=== PATIENT | female | born 1965 | race Caucasian/White ===

== ENCOUNTER 2020-10-23 09:54 | Inpatient (IN) | payer MEDICAID ==
[~2020-10-23] VITALS: Ht 170.2 cm; Wt 87.0 kg
[2020-10-23 10:17] LABS: HEMATOCRIT 38.4 % (36-46); HEMOGLOBIN 12.9 g/dL (12.0-16.0); MEAN CORPUSCULAR HEMOGLOBIN 29.5 pg (26.0-34.0); MEAN CORPUSCULAR HGB CONC 33.7 G/dL (31.0-37.0); MEAN CORPUSCULAR VOLUME 88 fL (80-100); PLATELET COUNT (AUTO) 239 K/uL (150-450); RED BLOOD CELL COUNT(AUTO) 4.39 MIL/uL (4.00-5.20); RED CELL DISTRIBUTION WIDTH 12.7 % (11.5-14.5)
[2020-10-23 10:31] LABS: INR 1.1 (0.9-1.1); PROTHROMBIN TIME 11.4 SEC (9.4-11.6)
[2020-10-23 11:00] LABS: BAND NEUTROPHILS % (MANUAL) 20 % (0-5); LYMPHOCYTES % (MANUAL) 7 % (22-44); METAMYELOCYTES % 1 % (0-0); MONOCYTES % (MANUAL) 7 % (2-9); SEGMENTED NEUTROPHILS % 65 % (40-70)
[2020-10-23 11:04] LABS: ALBUMIN 2.6 g/dL (3.4-5.0); BILIRUBIN,TOTAL 2.8 mg/dL (0.1-1.0); CALCIUM, TOTAL 8.8 mg/dL (8.8-10.5); CREATININE 1.15 mg/dL (0.60-1.30); POTASSIUM 3.2 mmol/L (3.5-5.1)
[2020-10-23 11:09] LABS: APPEARANCE,URINE CLOUDY (CLEAR); GLUCOSE, URINE (UA) NEGATIVE (NEGATIVE); KETONES,URINE TRACE mg/dL (NEGATIVE); LEUKOCYTE ESTERASE ,URINE NEGATIVE (NEGATIVE); NITRATE,URINE POSITIVE (NEGATIVE); PROTEIN,URINE SEE CONFIRM (NEGATIVE)
[2020-10-23] MEDS ORDERED: ASPIRIN 300 MG RECTAL SUPPOSITORY PR ONE (11:15)
[2020-10-23 11:17] LABS: AMPHET/METH SCREEN,URINE NEGATIVE (NEGATIVE); BARBITURATE SCREEN, URINE NEGATIVE (NEGATIVE); BENZODIAZEPINES SCREEN,URINE NEGATIVE (NEGATIVE); CANNABINOID SCREEN,URINE NEGATIVE (NEGATIVE); COCAINE SCREEN,URINE NEGATIVE (NEGATIVE); METHADONE SCREEN, URINE NEGATIVE (NEGATIVE); OPIATE SCREEN,URINE NEGATIVE (NEGATIVE)
[2020-10-23 11:20] LABS: PHENCYCLIDINE SCREEN,URINE NEGATIVE (NEGATIVE)
[2020-10-23 11:21] LABS: BILIRUBIN,URINE PRELIM. POSITIVE (NEGATIVE); OCCULT BLOOD,URINE SMALL (NEGATIVE)
[2020-10-23 11:22] LABS: BACTERIA,URINE Many /HPF (None Seen); SQUAMOUS EPITHELIAL CELL,UR Moderate /LPF (None Seen); SULFOSALICYLIC ACID,URINE 2+ (Negative); WBC,URINE 0-2 /HPF (0-5)
[2020-10-23 11:24] LABS: COVID AG,FIA SOURCE NASOPHARYNGEAL
[2020-10-23] MEDS ORDERED: VANCOMYCIN HCL 1.5 GM in DEXTROSE 5%-WATER 250 ML IV ONE (11:30)
[2020-10-23] MEDS ORDERED: AZITHROMYCIN 500 MG/NS 250 ML IV ONE (11:30)
[2020-10-23 11:33] LABS: ACETAMINOPHEN < 2 mcg/mL (10-30)
[2020-10-23 11:39] LABS: LACTIC ACID 4.4 mmol/L (0.4-2.0)
[2020-10-23 11:41] LABS: SALICYLATE < 0.2 mg/dL (2.8-20.0)
[2020-10-23] MEDS ORDERED: SODIUM CHLORIDE 0.9% 2,800 ML IV ONE (11:45)
[2020-10-23] MEDS: PIPERACILLIN/TAZO 3.375 GM/D5W 50 ML IV SCH ×2 (11:56→18:16)
[2020-10-23] MEDS ORDERED: 0.9% SODIUM CHLORIDE 10 ML SYRINGE IVP PRN (13:00)
[2020-10-23] MEDS ORDERED: ACETAMINOPHEN 325 MG TABLET PO PRN ×2 (13:00→15:45)
[2020-10-23] MEDS ORDERED: ONDANSETRON HCL 4 MG/2 ML VIAL IVP PRN ×2 (13:00→15:45)
[2020-10-23] MEDS ORDERED: SODIUM CHLORIDE 0.9% 1,000 ML IV ONE (15:00)
[2020-10-23] MEDS ORDERED: PHENYLEPHRINE 200 MG/D5%-WATER 250 ML IV PRN ×2 (15:15)
[2020-10-23] MEDS ORDERED: BISACODYL 10 MG RECTAL RECTAL SUPPOSITORY PR PRN (15:45)
[2020-10-23] MEDS ORDERED: MORPHINE SULFATE 2 MG/ML SYRINGE IVP PRN (15:45)
[2020-10-23 16:00] VITALS: BP 92/42
[2020-10-23] MEDS ORDERED: RINGERS SOLUTION,LACTATED 1,000 ML IV ONE (18:00)
[2020-10-23] MEDS ORDERED: SODIUM CHLORIDE 0.9% 250 ML IV ONE (18:14)
[2020-10-23] MEDS ORDERED: IOHEXOL 350 MG/ML 100 ML VIAL ONE (19:18)
[2020-10-23] MEDS ORDERED: SODIUM CHLORIDE 0.9% 100 ML ONE (19:18)
[2020-10-23] MEDS ORDERED: VANCOMYCIN HCL 1 GM/D5% WATER 200 ML IV SCH (20:00)
[2020-10-23 20:04] VITALS: BP 99/58
[2020-10-23] MEDS: ACETAMINOPHEN 650 MG RECTAL SUPPOSITORY PR PRN (20:44)
[2020-10-23] MEDS: ALBUMIN HUMAN 25%-25GM/100ML 100 ML IV SCH (20:44)
[2020-10-23] MEDS: DOCUSATE SODIUM 100 MG CAPSULE PO SCH (21:00)
[2020-10-24 00:09] VITALS: BP 107/64
[2020-10-24] MEDS ORDERED: SODIUM CHLORIDE 0.9% 250 ML IV ONE ×2 (00:17→12:03)
[2020-10-24] MEDS: PIPERACILLIN/TAZO 3.375 GM/D5W 50 ML IV SCH ×5 (00:19→23:21)
[2020-10-24 04:05] VITALS: BP 110/64
[2020-10-24] MEDS: ALBUMIN HUMAN 25%-25GM/100ML 100 ML IV SCH ×3 (04:13→20:19)
[2020-10-24] MEDS: ACETAMINOPHEN 650 MG RECTAL SUPPOSITORY PR PRN ×3 (04:13→20:59)
[2020-10-24 04:44] LABS: BASOPHILS % (AUTO) 0.1 % (0.0-2.0); EOSINOPHILS % (AUTO) 0.1 % (1.0-6.0); HEMATOCRIT 32.1 % (36-46); HEMOGLOBIN 10.8 g/dL (12.0-16.0); LYMPHOCYTES # (AUTO) 0.9 K/uL (1.0-4.8); LYMPHOCYTES % (AUTO) 6.6 % (22.0-44.0); MEAN CORPUSCULAR HEMOGLOBIN 29.5 pg (26.0-34.0); MEAN CORPUSCULAR HGB CONC 33.6 G/dL (31.0-37.0); MEAN CORPUSCULAR VOLUME 88 fL (80-100); MONOCYTES # (AUTO) 0.7 K/uL (0.1-1.0); MONOCYTES % (AUTO) 4.8 % (2.0-9.0); NEUTROPHILS # (AUTO) 12.3 K/uL (1.8-7.7); PLATELET COUNT (AUTO) 217 K/uL (150-450); RED BLOOD CELL COUNT(AUTO) 3.65 MIL/uL (4.00-5.20); RED CELL DISTRIBUTION WIDTH 13.1 % (11.5-14.5)
[2020-10-24 04:56] LABS: NEUTROPHILS % (AUTO) 88.4 % (40.0-70.0)
[2020-10-24 07:14] LABS: ANION GAP 13 mmol/L (8-16); CALCIUM, TOTAL 7.7 mg/dL (8.8-10.5); CARBON DIOXIDE 20 mmol/L (22-29); CHLORIDE 102 mmol/L (98-107); CREATININE 0.66 mg/dL (0.60-1.30); GLOMERULAR FILTR. RATE CALC > 60 mL/min (>60); GLUCOSE,RANDOM 101 mg/dL (70-110); SODIUM SERUM 135 mmol/L (136-145); UREA NITROGEN, BLOOD 14 mg/dL (7-18)
[2020-10-24] MEDS ORDERED: SODIUM CHLORIDE 0.9% 100 ML ONE (07:20)
[2020-10-24] MEDS ORDERED: IOHEXOL 350 MG/ML 100 ML VIAL ONE (07:20)
[2020-10-24 08:00] VITALS: BP 97/57
[2020-10-24] MEDS: DOCUSATE SODIUM 100 MG CAPSULE PO SCH ×2 (09:00→20:16)
[2020-10-24] MEDS: PANTOPRAZOLE SODIUM 40 MG DR TABLET PO SCH (09:00)
[2020-10-24] MEDS: ASPIRIN 81 MG CHEWABLE TABLET PO SCH (09:00)
[2020-10-24] MEDS: POTASSIUM CHL 10 MEQ/WATER 50 ML IV PRN ×4 (10:38→14:50)
[2020-10-24 12:00] VITALS: BP 103/65
[2020-10-24 16:00] VITALS: BP 94/55
[2020-10-24 17:35] LABS: MAGNESIUM 1.9 mg/dL (1.80-2.40); PHOSPHORUS 2.3 mg/dL (2.5-4.9); POTASSIUM 3.7 mmol/L (3.5-5.1)
[2020-10-24 20:00] VITALS: BP 97/53
[2020-10-24] MEDS: ATORVASTATIN CALCIUM 10 MG TABLET PO SCH (20:16)
[2020-10-25] VITALS: BP 94/57
[2020-10-25 04:00] VITALS: BP 95/59
[2020-10-25] MEDS: ALBUMIN HUMAN 25%-25GM/100ML 100 ML IV SCH ×3 (04:13→19:46)
[2020-10-25] MEDS ORDERED: SODIUM CHLORIDE 0.9% 250 ML IV ONE ×2 (04:14→20:45)
[2020-10-25] MEDS: PIPERACILLIN/TAZO 3.375 GM/D5W 50 ML IV SCH ×4 (05:04→23:06)
[2020-10-25 05:09] LABS: BASOPHILS % (AUTO) 0.2 % (0.0-2.0); EOSINOPHILS % (AUTO) 0.3 % (1.0-6.0); HEMATOCRIT 30.4 % (36-46); HEMOGLOBIN 10.2 g/dL (12.0-16.0); LYMPHOCYTES # (AUTO) 1.2 K/uL (1.0-4.8); LYMPHOCYTES % (AUTO) 9.1 % (22.0-44.0); MEAN CORPUSCULAR HEMOGLOBIN 29.6 pg (26.0-34.0); MEAN CORPUSCULAR HGB CONC 33.5 G/dL (31.0-37.0); MEAN CORPUSCULAR VOLUME 89 fL (80-100); MONOCYTES # (AUTO) 0.6 K/uL (0.1-1.0); MONOCYTES % (AUTO) 4.5 % (2.0-9.0); NEUTROPHILS # (AUTO) 11.6 K/uL (1.8-7.7); PLATELET COUNT (AUTO) 222 K/uL (150-450); RED BLOOD CELL COUNT(AUTO) 3.44 MIL/uL (4.00-5.20); RED CELL DISTRIBUTION WIDTH 13.3 % (11.5-14.5)
[2020-10-25 05:26] LABS: ANION GAP 7 mmol/L (8-16); CALCIUM, TOTAL 8.5 mg/dL (8.8-10.5); CARBON DIOXIDE 25 mmol/L (22-29); CHLORIDE 104 mmol/L (98-107); CREATININE 0.66 mg/dL (0.60-1.30); GLOMERULAR FILTR. RATE CALC > 60 mL/min (>60); GLUCOSE,RANDOM 87 mg/dL (70-110); POTASSIUM 3.2 mmol/L (3.5-5.1); SODIUM SERUM 136 mmol/L (136-145); UREA NITROGEN, BLOOD 15 mg/dL (7-18)
[2020-10-25] MEDS: POTASSIUM CHL 10 MEQ/WATER 50 ML IV PRN ×3 (05:48→06:52)
[2020-10-25 05:56] LABS: NEUTROPHILS % (AUTO) 85.9 % (40.0-70.0)
[2020-10-25 08:00] VITALS: BP 104/62
[2020-10-25] MEDS: DOCUSATE SODIUM 100 MG CAPSULE PO SCH ×2 (09:00→20:54)
[2020-10-25] MEDS: PANTOPRAZOLE SODIUM 40 MG DR TABLET PO SCH (10:19)
[2020-10-25] MEDS: ASPIRIN 81 MG CHEWABLE TABLET PO SCH (10:20)
[2020-10-25 12:00] VITALS: BP 94/58
[2020-10-25] MEDS ORDERED: VANCOMYCIN HCL 1.5 GM in DEXTROSE 5%-WATER 250 ML IV ONE (13:15)
[2020-10-25 16:00] VITALS: BP 116/64
[2020-10-25] MEDS: ACETAMINOPHEN 325 MG TABLET PO PRN ×2 (17:44→23:12)
[2020-10-25 20:00] VITALS: BP 101/57
[2020-10-25] MEDS: ATORVASTATIN CALCIUM 10 MG TABLET PO SCH (20:54)
[2020-10-25] MEDS: VANCOMYCIN HCL 1 GM/D5% WATER 200 ML IV SCH (23:07)
[2020-10-26] VITALS: BP 105/59
[2020-10-26] MEDS: ALBUMIN HUMAN 25%-25GM/100ML 100 ML IV SCH ×3 (03:02→20:41)
[2020-10-26 04:00] VITALS: BP 98/56
[2020-10-26 05:07] LABS: HIV 1-2 SCREEN 4TH GEN W/RFLX Non Reactive (Non Reactive)
[2020-10-26 05:45] LABS: BASOPHILS % (AUTO) 0.2 % (0.0-2.0); EOSINOPHILS % (AUTO) 1.1 % (1.0-6.0); HEMATOCRIT 31.9 % (36-46); HEMOGLOBIN 10.7 g/dL (12.0-16.0); LYMPHOCYTES # (AUTO) 1.1 K/uL (1.0-4.8); LYMPHOCYTES % (AUTO) 9.2 % (22.0-44.0); MEAN CORPUSCULAR HEMOGLOBIN 29.6 pg (26.0-34.0); MEAN CORPUSCULAR HGB CONC 33.7 G/dL (31.0-37.0); MEAN CORPUSCULAR VOLUME 88 fL (80-100); MONOCYTES # (AUTO) 0.6 K/uL (0.1-1.0); MONOCYTES % (AUTO) 4.5 % (2.0-9.0); NEUTROPHILS # (AUTO) 10.6 K/uL (1.8-7.7); PLATELET COUNT (AUTO) 220 K/uL (150-450); RED BLOOD CELL COUNT(AUTO) 3.63 MIL/uL (4.00-5.20); RED CELL DISTRIBUTION WIDTH 13.2 % (11.5-14.5)
[2020-10-26] MEDS: PIPERACILLIN/TAZO 3.375 GM/D5W 50 ML IV SCH ×3 (06:10→18:20)
[2020-10-26 07:09] LABS: ALANINE AMINOTRANSFERASE 44 U/L (12-78); ALBUMIN 2.9 g/dL (3.4-5.0); ALKALINE PHOSPHATASE 62 U/L (46-116); ANION GAP 12 mmol/L (8-16); ASPARTATE AMINOTRANSFERASE 49 U/L (15-37); BILIRUBIN,TOTAL 1.1 mg/dL (0.1-1.0); CALCIUM, TOTAL 8.2 mg/dL (8.8-10.5); CARBON DIOXIDE 23 mmol/L (22-29); CHLORIDE 100 mmol/L (98-107); CHOL/HDL RATIO 6.8 (3.9-5.7); CHOLESTEROL 75 mg/dL (131-200); CREATININE 0.59 mg/dL (0.60-1.30); GLOMERULAR FILTR. RATE CALC > 60 mL/min (>60); GLUCOSE,RANDOM 103 mg/dL (70-110); HDL CHOLESTEROL 11 mg/dL (40-60); LDL CHOL (CALC.) 42 mg/dL (0-130); PHOSPHORUS 2.2 mg/dL (2.5-4.9); POTASSIUM 3.4 mmol/L (3.5-5.1); SODIUM SERUM 135 mmol/L (136-145); TOTAL PROTEIN, SERUM 5.9 g/dL (6.4-8.2); TRIGLYCERIDES 110 mg/dL (15-150); UREA NITROGEN, BLOOD 14 mg/dL (7-18)
[2020-10-26 08:00] VITALS: BP 111/66
[2020-10-26] MEDS ORDERED: HEPARIN SODIUM,PORCINE 5,000 UNITS/ML VIAL IVP ONE (08:00)
[2020-10-26] MEDS ORDERED: POTASSIUM CHLORIDE 20 MEQ ER TABLET PO PRN ×2 (08:00)
[2020-10-26] MEDS ORDERED: HEPARIN SODIUM,PORCINE 5,000 UNITS/ML VIAL IVP PRN (08:00)
[2020-10-26] MEDS: HEPARIN SODIUM 25000 UNITS/D5W 250 ML IV PRN ×2 (08:13→21:48)
[2020-10-26] MEDS: ASPIRIN 81 MG CHEWABLE TABLET PO SCH (08:14)
[2020-10-26] MEDS: DOCUSATE SODIUM 100 MG CAPSULE PO SCH ×2 (08:14→20:41)
[2020-10-26] MEDS: VANCOMYCIN HCL 1 GM/D5% WATER 200 ML IV SCH ×2 (08:14→16:03)
[2020-10-26] MEDS: ETHYL ALCOHOL 62% ANTISEPTIC NASAL INHALANT 0.6 ML AMPUL NASAL SCH ×2 (08:14→20:41)
[2020-10-26] MEDS: PANTOPRAZOLE SODIUM 40 MG DR TABLET PO SCH (08:15)
[2020-10-26 09:07] LABS: dsDNA(nDNA) Screen-Crithidia Negative (Negative)
[2020-10-26] MEDS ORDERED: MAGNESIUM SULFATE 2 GM/WATER 50 ML IV ONE (10:00)
[2020-10-26] MEDS ORDERED: POTASSIUM PHOS,M-BASIC-D-BASIC 10 MEQ in DEXTROSE 5%-WATER 50 ML IV ONE (10:00)
[2020-10-26] MEDS ORDERED: SODIUM CHLORIDE 0.9% 250 ML IV ONE (10:07)
[2020-10-26] MEDS: ACETAMINOPHEN 325 MG TABLET PO PRN ×3 (11:07→20:55)
[2020-10-26 12:00] VITALS: BP 94/62
[2020-10-26 15:29] LABS: ANION GAP 9 mmol/L (8-16); CALCIUM, TOTAL 8.8 mg/dL (8.8-10.5); CARBON DIOXIDE 27 mmol/L (22-29); CHLORIDE 100 mmol/L (98-107); CREATININE 0.58 mg/dL (0.60-1.30); GLOMERULAR FILTR. RATE CALC > 60 mL/min (>60); GLUCOSE,RANDOM 94 mg/dL (70-110); POTASSIUM 3.8 mmol/L (3.5-5.1); SODIUM SERUM 136 mmol/L (136-145); UREA NITROGEN, BLOOD 10 mg/dL (7-18)
[2020-10-26 16:00] VITALS: BP 100/62
[2020-10-26 20:00] VITALS: BP 104/59
[2020-10-26] MEDS: ATORVASTATIN CALCIUM 10 MG TABLET PO SCH (20:42)
[2020-10-27] VITALS: BP 98/61
[2020-10-27] MEDS: VANCOMYCIN HCL 1 GM/D5% WATER 200 ML IV SCH (00:10)
[2020-10-27] MEDS: PIPERACILLIN/TAZO 3.375 GM/D5W 50 ML IV SCH ×5 (00:10→23:12)
[2020-10-27] MEDS: ACETAMINOPHEN 325 MG TABLET PO PRN ×4 (02:47→23:12)
[2020-10-27 04:00] VITALS: BP_SYST 124; BP_SYST 84; BP_DIAS 53; BP_DIAS 74
[2020-10-27] MEDS: ALBUMIN HUMAN 25%-25GM/100ML 100 ML IV SCH ×3 (04:35→20:00)
[2020-10-27 05:29] LABS: ANION GAP 6 mmol/L (8-16); CALCIUM, TOTAL 8.5 mg/dL (8.8-10.5); CARBON DIOXIDE 27 mmol/L (22-29); CHLORIDE 102 mmol/L (98-107); CREATININE 0.58 mg/dL (0.60-1.30); GLOMERULAR FILTR. RATE CALC > 60 mL/min (>60); GLUCOSE,RANDOM 113 mg/dL (70-110); PHOSPHORUS 3.1 mg/dL (2.5-4.9); POTASSIUM 3.5 mmol/L (3.5-5.1); SODIUM SERUM 135 mmol/L (136-145); UREA NITROGEN, BLOOD 9 mg/dL (7-18)
[2020-10-27] MEDS ORDERED: SODIUM CHLORIDE 0.9% 250 ML IV ONE ×2 (06:31→22:06)
[2020-10-27] MEDS: POTASSIUM CHL 10 MEQ/WATER 50 ML IV PRN ×4 (06:32→10:40)
[2020-10-27] MEDS ORDERED: POTASSIUM CHL 10 MEQ/WATER 50 ML IV PRN ×6 (06:45→07:00)
[2020-10-27 08:00] VITALS: BP 101/66
[2020-10-27] MEDS: PANTOPRAZOLE SODIUM 40 MG DR TABLET PO SCH (08:28)
[2020-10-27] MEDS: ETHYL ALCOHOL 62% ANTISEPTIC NASAL INHALANT 0.6 ML AMPUL NASAL SCH ×2 (08:28→21:00)
[2020-10-27] MEDS: VANCOMYCIN HCL 1.25 GM in DEXTROSE 5%-WATER 250 ML IV SCH ×3 (08:28→23:12)
[2020-10-27] MEDS: ASPIRIN 81 MG CHEWABLE TABLET PO SCH (08:28)
[2020-10-27] MEDS: DOCUSATE SODIUM 100 MG CAPSULE PO SCH ×2 (08:29→21:00)
[2020-10-27] MEDS: HEPARIN SODIUM 25000 UNITS/D5W 250 ML IV PRN (10:07)
[2020-10-27 12:00] VITALS: BP 115/73
[2020-10-27] MEDS ORDERED: 0.9% SODIUM CHLORIDE 15 ML NEB SOLUTION NEB ONE ×2 (14:01→14:02)
[2020-10-27 16:00] VITALS: BP 104/64
[2020-10-27 20:01] VITALS: BP 106/60
[2020-10-27] MEDS: ATORVASTATIN CALCIUM 10 MG TABLET PO SCH (21:00)
[2020-10-28] VITALS (7 sets, daily range): BP systolic 99–110; BP diastolic 53–66
[2020-10-28] MEDS: HEPARIN SODIUM 25000 UNITS/D5W 250 ML IV PRN ×2 (00:07→13:09)
[2020-10-28] MEDS: ALBUMIN HUMAN 25%-25GM/100ML 100 ML IV SCH ×3 (05:05→20:06)
[2020-10-28] MEDS: PIPERACILLIN/TAZO 3.375 GM/D5W 50 ML IV SCH ×4 (05:05→23:45)
[2020-10-28 05:08] LABS: DRVVT CORRECTED MIX-LUPUS 42.2 sec (0.0-40.4)
[2020-10-28 05:12] LABS: ANION GAP 6 mmol/L (8-16); CALCIUM, TOTAL 8.8 mg/dL (8.8-10.5); CARBON DIOXIDE 26 mmol/L (22-29); CHLORIDE 103 mmol/L (98-107); CREATININE 0.61 mg/dL (0.60-1.30); GLOMERULAR FILTR. RATE CALC > 60 mL/min (>60); GLUCOSE,RANDOM 106 mg/dL (70-110); POTASSIUM 3.9 mmol/L (3.5-5.1); SODIUM SERUM 135 mmol/L (136-145); UREA NITROGEN, BLOOD 9 mg/dL (7-18)
[2020-10-28] MEDS: PANTOPRAZOLE SODIUM 40 MG DR TABLET PO SCH (08:34)
[2020-10-28] MEDS: ASPIRIN 81 MG CHEWABLE TABLET PO SCH (08:34)
[2020-10-28] MEDS: VANCOMYCIN HCL 1.25 GM in DEXTROSE 5%-WATER 250 ML IV SCH ×2 (08:34→16:00)
[2020-10-28] MEDS: DOCUSATE SODIUM 100 MG CAPSULE PO SCH ×2 (08:35→20:13)
[2020-10-28] MEDS: ETHYL ALCOHOL 62% ANTISEPTIC NASAL INHALANT 0.6 ML AMPUL NASAL SCH ×2 (08:43→20:06)
[2020-10-28] MEDS: ACETAMINOPHEN 325 MG TABLET PO PRN ×2 (11:49→17:33)
[2020-10-28] MEDS: HYDROCODONE/ACETAMINOPHEN 5-325 MG TABLET PO PRN (20:05)
[2020-10-28] MEDS: ATORVASTATIN CALCIUM 10 MG TABLET PO SCH (20:05)
[2020-10-28] MEDS: ZOLPIDEM TARTRATE 5 MG TABLET PO PRN (20:05)
[2020-10-28] MEDS ORDERED: SODIUM CHLORIDE 0.9% 100 ML ONE (20:15)
[2020-10-29 00:12] VITALS: BP 114/67
[2020-10-29] MEDS: VANCOMYCIN HCL 1.25 GM in DEXTROSE 5%-WATER 250 ML IV SCH ×3 (00:34→16:52)
[2020-10-29] MEDS: ALBUMIN HUMAN 25%-25GM/100ML 100 ML IV SCH ×3 (03:47→21:21)
[2020-10-29 04:20] VITALS: BP 111/62
[2020-10-29] MEDS: PIPERACILLIN/TAZO 3.375 GM/D5W 50 ML IV SCH ×3 (05:11→18:56)
[2020-10-29] MEDS ORDERED: SODIUM CHLORIDE 0.9% 250 ML IV ONE (05:13)
[2020-10-29 06:16] LABS: BASOPHILS % (AUTO) 0.2 % (0.0-2.0); EOSINOPHILS % (AUTO) 0.5 % (1.0-6.0); HEMATOCRIT 29.1 % (36-46); HEMOGLOBIN 9.7 g/dL (12.0-16.0); LYMPHOCYTES # (AUTO) 2.1 K/uL (1.0-4.8); LYMPHOCYTES % (AUTO) 10.6 % (22.0-44.0); MEAN CORPUSCULAR HEMOGLOBIN 29.5 pg (26.0-34.0); MEAN CORPUSCULAR HGB CONC 33.3 G/dL (31.0-37.0); MEAN CORPUSCULAR VOLUME 89 fL (80-100); MONOCYTES # (AUTO) 0.7 K/uL (0.1-1.0); MONOCYTES % (AUTO) 3.5 % (2.0-9.0); NEUTROPHILS # (AUTO) 16.8 K/uL (1.8-7.7); PLATELET COUNT (AUTO) 372 K/uL (150-450); RED BLOOD CELL COUNT(AUTO) 3.28 MIL/uL (4.00-5.20); RED CELL DISTRIBUTION WIDTH 13.2 % (11.5-14.5)
[2020-10-29 07:00] LABS: NEUTROPHILS % (AUTO) 85.2 % (40.0-70.0)
[2020-10-29 07:24] LABS: ALANINE AMINOTRANSFERASE 26 U/L (12-78); ALBUMIN 3.6 g/dL (3.4-5.0); ALKALINE PHOSPHATASE 49 U/L (46-116); ANION GAP 11 mmol/L (8-16); ASPARTATE AMINOTRANSFERASE 20 U/L (15-37); BILIRUBIN,TOTAL 0.9 mg/dL (0.1-1.0); CALCIUM, TOTAL 8.8 mg/dL (8.8-10.5); CARBON DIOXIDE 24 mmol/L (22-29); CHLORIDE 101 mmol/L (98-107); CREATININE 0.61 mg/dL (0.60-1.30); GLOMERULAR FILTR. RATE CALC > 60 mL/min (>60); GLUCOSE,RANDOM 93 mg/dL (70-110); POTASSIUM 3.6 mmol/L (3.5-5.1); SODIUM SERUM 136 mmol/L (136-145); TOTAL PROTEIN, SERUM 6.7 g/dL (6.4-8.2); UREA NITROGEN, BLOOD 8 mg/dL (7-18); VANCOMYCIN,RANDOM 24.3 mcg/mL (25.0-50.0)
[2020-10-29 07:59] VITALS: BP 112/62
[2020-10-29] MEDS: ASPIRIN 81 MG CHEWABLE TABLET PO SCH (08:01)
[2020-10-29] MEDS: ETHYL ALCOHOL 62% ANTISEPTIC NASAL INHALANT 0.6 ML AMPUL NASAL SCH ×2 (08:01→21:21)
[2020-10-29] MEDS: DOCUSATE SODIUM 100 MG CAPSULE PO SCH ×2 (08:01→21:00)
[2020-10-29] MEDS: PANTOPRAZOLE SODIUM 40 MG DR TABLET PO SCH (08:01)
[2020-10-29 12:20] VITALS: BP 120/68
[2020-10-29 15:09] VITALS: BP 107/62
[2020-10-29 19:55] VITALS: BP 104/59
[2020-10-29] MEDS: ATORVASTATIN CALCIUM 10 MG TABLET PO SCH (21:21)
[2020-10-29] MEDS: ZOLPIDEM TARTRATE 5 MG TABLET PO PRN (21:22)
[2020-10-29] MEDS: HYDROCODONE/ACETAMINOPHEN 5-325 MG TABLET PO PRN (21:22)
[2020-10-30] VITALS (7 sets, daily range): BP systolic 101–122; BP diastolic 54–73
[2020-10-30] MEDS: VANCOMYCIN HCL 1.25 GM in DEXTROSE 5%-WATER 250 ML IV SCH ×3 (00:09→17:31)
[2020-10-30] MEDS: PIPERACILLIN/TAZO 3.375 GM/D5W 50 ML IV SCH ×4 (00:09→18:17)
[2020-10-30] MEDS: HYDROCODONE/ACETAMINOPHEN 5-325 MG TABLET PO PRN ×2 (01:54→20:37)
[2020-10-30] MEDS ORDERED: SODIUM CHLORIDE 0.9% 250 ML IV ONE ×2 (03:33→17:45)
[2020-10-30] MEDS: ALBUMIN HUMAN 25%-25GM/100ML 100 ML IV SCH ×3 (05:14→20:38)
[2020-10-30 06:59] LABS: HEMATOCRIT 30.2 % (36-46); MEAN CORPUSCULAR HEMOGLOBIN 29.2 pg (26.0-34.0); MEAN CORPUSCULAR HGB CONC 33.2 G/dL (31.0-37.0); MEAN CORPUSCULAR VOLUME 88 fL (80-100); PLATELET COUNT (AUTO) 447 K/uL (150-450); RED BLOOD CELL COUNT(AUTO) 3.44 MIL/uL (4.00-5.20); RED CELL DISTRIBUTION WIDTH 13.2 % (11.5-14.5)
[2020-10-30 07:13] LABS: ALANINE AMINOTRANSFERASE 25 U/L (12-78); ALBUMIN 3.8 g/dL (3.4-5.0); ALKALINE PHOSPHATASE 53 U/L (46-116); ANION GAP 16 mmol/L (8-16); ASPARTATE AMINOTRANSFERASE 23 U/L (15-37); CARBON DIOXIDE 26 mmol/L (22-29); CHLORIDE 100 mmol/L (98-107); GLOMERULAR FILTR. RATE CALC > 60 mL/min (>60); GLUCOSE,RANDOM 101 mg/dL (70-110); POTASSIUM 3.6 mmol/L (3.5-5.1); SODIUM SERUM 142 mmol/L (136-145); TOTAL PROTEIN, SERUM 7.1 g/dL (6.4-8.2); UREA NITROGEN, BLOOD 9 mg/dL (7-18)
[2020-10-30 07:59] LABS: BAND NEUTROPHILS % (MANUAL) 10 % (0-5); LYMPHOCYTES % (MANUAL) 9 % (22-44); MONOCYTES % (MANUAL) 3 % (2-9); SEGMENTED NEUTROPHILS % 78 % (40-70)
[2020-10-30] MEDS: PANTOPRAZOLE SODIUM 40 MG DR TABLET PO SCH (08:28)
[2020-10-30] MEDS: ASPIRIN 81 MG CHEWABLE TABLET PO SCH (08:28)
[2020-10-30] MEDS: DOCUSATE SODIUM 100 MG CAPSULE PO SCH ×2 (08:28→20:37)
[2020-10-30] MEDS: ETHYL ALCOHOL 62% ANTISEPTIC NASAL INHALANT 0.6 ML AMPUL NASAL SCH ×2 (08:28→20:57)
[2020-10-30] MEDS ORDERED: SODIUM CHLORIDE 0.9% 2,000 ML ONE (16:19)
[2020-10-30] MEDS: ATORVASTATIN CALCIUM 10 MG TABLET PO SCH (20:37)
[2020-10-30] MEDS: ZOLPIDEM TARTRATE 5 MG TABLET PO PRN (20:37)
[2020-10-31] MEDS: VANCOMYCIN HCL 1.25 GM in DEXTROSE 5%-WATER 250 ML IV SCH (00:47)
[2020-10-31] MEDS: PIPERACILLIN/TAZO 3.375 GM/D5W 50 ML IV SCH ×2 (00:47→06:11)
[2020-10-31] MEDS: HYDROCODONE/ACETAMINOPHEN 5-325 MG TABLET PO PRN (00:54)
[2020-10-31 04:23] VITALS: BP 107/85
[2020-10-31] MEDS: ALBUMIN HUMAN 25%-25GM/100ML 100 ML IV SCH ×3 (04:26→20:48)
[2020-10-31] MEDS ORDERED: SODIUM CHLORIDE 0.9% 250 ML IV ONE ×2 (06:07→17:19)
[2020-10-31 06:30] LABS: HEMATOCRIT 31.1 % (36-46); HEMOGLOBIN 10.2 g/dL (12.0-16.0); MEAN CORPUSCULAR HEMOGLOBIN 29.1 pg (26.0-34.0); MEAN CORPUSCULAR HGB CONC 32.8 G/dL (31.0-37.0); MEAN CORPUSCULAR VOLUME 89 fL (80-100); PLATELET COUNT (AUTO) 539 K/uL (150-450); RED CELL DISTRIBUTION WIDTH 13.7 % (11.5-14.5)
[2020-10-31 07:12] LABS: ALANINE AMINOTRANSFERASE 26 U/L (12-78); ALBUMIN 4.1 g/dL (3.4-5.0); ALKALINE PHOSPHATASE 49 U/L (46-116); ANION GAP 12 mmol/L (8-16); ASPARTATE AMINOTRANSFERASE 21 U/L (15-37); BILIRUBIN,TOTAL 1.1 mg/dL (0.1-1.0); CALCIUM, TOTAL 9.1 mg/dL (8.8-10.5); CARBON DIOXIDE 23 mmol/L (22-29); CHLORIDE 101 mmol/L (98-107); CREATININE 0.69 mg/dL (0.60-1.30); GLOMERULAR FILTR. RATE CALC > 60 mL/min (>60); GLUCOSE,RANDOM 96 mg/dL (70-110); POTASSIUM 3.8 mmol/L (3.5-5.1); SODIUM SERUM 136 mmol/L (136-145); TOTAL PROTEIN, SERUM 7.3 g/dL (6.4-8.2); UREA NITROGEN, BLOOD 15 mg/dL (7-18)
[2020-10-31 07:17] VITALS: BP 112/63
[2020-10-31 07:31] LABS: BAND NEUTROPHILS % (MANUAL) 7 % (0-5); LYMPHOCYTES % (MANUAL) 17 % (22-44); MONOCYTES % (MANUAL) 4 % (2-9); SEGMENTED NEUTROPHILS % 72 % (40-70)
[2020-10-31] MEDS: PANTOPRAZOLE SODIUM 40 MG DR TABLET PO SCH (09:01)
[2020-10-31] MEDS: ETHYL ALCOHOL 62% ANTISEPTIC NASAL INHALANT 0.6 ML AMPUL NASAL SCH ×2 (09:01→20:48)
[2020-10-31] MEDS: ASPIRIN 81 MG CHEWABLE TABLET PO SCH (09:01)
[2020-10-31] MEDS: VANCOMYCIN HCL 1 GM/D5% WATER 200 ML IV SCH ×2 (09:01→17:16)
[2020-10-31] MEDS: DOCUSATE SODIUM 100 MG CAPSULE PO SCH ×2 (09:01→20:48)
[2020-10-31] MEDS: HEPARIN SODIUM 25000 UNITS/D5W 250 ML IV PRN ×2 (09:03→22:32)
[2020-10-31 11:23] VITALS: BP 105/65
[2020-10-31 14:44] VITALS: BP 101/58
[2020-10-31] MEDS ORDERED: SODIUM CHLORIDE 0.9% 100 ML ONE (18:13)
[2020-10-31] MEDS ORDERED: IOHEXOL 350 MG/ML 100 ML VIAL ONE (18:13)
[2020-10-31 20:15] VITALS: BP 114/66
[2020-10-31] MEDS: ATORVASTATIN CALCIUM 10 MG TABLET PO SCH (20:48)
[2020-11-01 00:10] VITALS: BP 112/61
[2020-11-01] MEDS: VANCOMYCIN HCL 1 GM/D5% WATER 200 ML IV SCH ×2 (00:16→08:46)
[2020-11-01] MEDS: ALBUMIN HUMAN 25%-25GM/100ML 100 ML IV SCH (04:08)
[2020-11-01 04:35] VITALS: BP 119/60
[2020-11-01] MEDS: ACETAMINOPHEN 325 MG TABLET PO PRN (04:44)
[2020-11-01 05:22] LABS: HEMATOCRIT 29.6 % (36-46); MEAN CORPUSCULAR HEMOGLOBIN 29.7 pg (26.0-34.0); MEAN CORPUSCULAR HGB CONC 33.7 G/dL (31.0-37.0); MEAN CORPUSCULAR VOLUME 88 fL (80-100); PLATELET COUNT (AUTO) 594 K/uL (150-450); RED BLOOD CELL COUNT(AUTO) 3.35 MIL/uL (4.00-5.20); RED CELL DISTRIBUTION WIDTH 13.3 % (11.5-14.5)
[2020-11-01 06:09] LABS: ALANINE AMINOTRANSFERASE 25 U/L (12-78); ALBUMIN 4.3 g/dL (3.4-5.0); ALKALINE PHOSPHATASE 44 U/L (46-116); ANION GAP 8 mmol/L (8-16); ASPARTATE AMINOTRANSFERASE 25 U/L (15-37); CALCIUM, TOTAL 9.4 mg/dL (8.8-10.5); CARBON DIOXIDE 26 mmol/L (22-29); CHLORIDE 102 mmol/L (98-107); CREATININE 0.59 mg/dL (0.60-1.30); GLOMERULAR FILTR. RATE CALC > 60 mL/min (>60); GLUCOSE,RANDOM 97 mg/dL (70-110); POTASSIUM 3.9 mmol/L (3.5-5.1); SODIUM SERUM 136 mmol/L (136-145); TOTAL PROTEIN, SERUM 7.6 g/dL (6.4-8.2); UREA NITROGEN, BLOOD 12 mg/dL (7-18); VANCOMYCIN,RANDOM 27.6 mcg/mL (25.0-50.0)
[2020-11-01 07:11] VITALS: BP 103/70
[2020-11-01 07:18] LABS: BAND NEUTROPHILS % (MANUAL) 7 % (0-5); EOSINOPHILS % (MANUAL) 1 % (1-6); LYMPHOCYTES % (MANUAL) 14 % (22-44); MONOCYTES % (MANUAL) 6 % (2-9); SEGMENTED NEUTROPHILS % 72 % (40-70)
[2020-11-01] MEDS: PANTOPRAZOLE SODIUM 40 MG DR TABLET PO SCH (08:46)
[2020-11-01] MEDS: DOCUSATE SODIUM 100 MG CAPSULE PO SCH ×2 (08:46→20:02)
[2020-11-01] MEDS: ASPIRIN 81 MG CHEWABLE TABLET PO SCH (08:46)
[2020-11-01] MEDS: ETHYL ALCOHOL 62% ANTISEPTIC NASAL INHALANT 0.6 ML AMPUL NASAL SCH ×2 (08:48→20:02)
[2020-11-01 11:24] VITALS: BP 112/63
[2020-11-01] MEDS: HEPARIN SODIUM 25000 UNITS/D5W 250 ML IV PRN (14:16)
[2020-11-01 15:17] VITALS: BP 120/63
[2020-11-01] MEDS: HEPARIN SODIUM,PORCINE 5,000 UNITS/ML VIAL IVP PRN (16:57)
[2020-11-01 19:30] VITALS: BP 128/62
[2020-11-01] MEDS: ATORVASTATIN CALCIUM 10 MG TABLET PO SCH (20:02)
[2020-11-02] VITALS (7 sets, daily range): BP systolic 112–134; BP diastolic 60–66
[2020-11-02 05:24] LABS: BASOPHILS % (AUTO) 0.3 % (0.0-2.0); EOSINOPHILS % (AUTO) 0.4 % (1.0-6.0); HEMATOCRIT 31.7 % (36-46); HEMOGLOBIN 10.4 g/dL (12.0-16.0); LYMPHOCYTES # (AUTO) 2.2 K/uL (1.0-4.8); LYMPHOCYTES % (AUTO) 10.8 % (22.0-44.0); MEAN CORPUSCULAR HEMOGLOBIN 29.2 pg (26.0-34.0); MEAN CORPUSCULAR HGB CONC 32.7 G/dL (31.0-37.0); MEAN CORPUSCULAR VOLUME 89 fL (80-100); MONOCYTES # (AUTO) 0.9 K/uL (0.1-1.0); MONOCYTES % (AUTO) 4.3 % (2.0-9.0); NEUTROPHILS # (AUTO) 16.9 K/uL (1.8-7.7); NEUTROPHILS % (AUTO) 84.2 % (40.0-70.0); PLATELET COUNT (AUTO) 686 K/uL (150-450); RED BLOOD CELL COUNT(AUTO) 3.56 MIL/uL (4.00-5.20); RED CELL DISTRIBUTION WIDTH 13.5 % (11.5-14.5)
[2020-11-02 05:41] LABS: ALANINE AMINOTRANSFERASE 24 U/L (12-78); ALKALINE PHOSPHATASE 51 U/L (46-116); ANION GAP 8 mmol/L (8-16); ASPARTATE AMINOTRANSFERASE 24 U/L (15-37); BILIRUBIN,TOTAL 0.9 mg/dL (0.1-1.0); CALCIUM, TOTAL 9.4 mg/dL (8.8-10.5); CARBON DIOXIDE 26 mmol/L (22-29); CHLORIDE 101 mmol/L (98-107); GLOMERULAR FILTR. RATE CALC > 60 mL/min (>60); GLUCOSE,RANDOM 95 mg/dL (70-110); POTASSIUM 3.9 mmol/L (3.5-5.1); SODIUM SERUM 135 mmol/L (136-145); TOTAL PROTEIN, SERUM 7.4 g/dL (6.4-8.2); UREA NITROGEN, BLOOD 16 mg/dL (7-18)
[2020-11-02] MEDS ORDERED: MIDAZOLAM HCL 2 MG/2 ML VIAL ONE ×2 (07:48→08:23)
[2020-11-02] MEDS ORDERED: NALOXONE HCL 0.4 MG/ML VIAL ONE (07:48)
[2020-11-02] MEDS ORDERED: FentaNYL CITRATE PF 100 MCG/2 ML VIAL ONE ×2 (07:48→08:22)
[2020-11-02] MEDS ORDERED: FLUMAZENIL 0.1 MG/ML 5 ML VIAL IVP ONE (07:48)
[2020-11-02] MEDS ORDERED: LIDOCAINE/PF 1% 30 ML VIAL ONE (09:23)
[2020-11-02] MEDS ORDERED: MIDAZOLAM HCL 2 MG/2 ML VIAL IM ONE (10:30)
[2020-11-02] MEDS ORDERED: FentaNYL CITRATE PF 100 MCG/2 ML VIAL IVP ONE (10:30)
[2020-11-02] MEDS: ACETAMINOPHEN 325 MG TABLET PO PRN (11:48)
[2020-11-02] MEDS: PANTOPRAZOLE SODIUM 40 MG DR TABLET PO SCH (11:48)
[2020-11-02] MEDS: ASPIRIN 81 MG CHEWABLE TABLET PO SCH (11:48)
[2020-11-02] MEDS: VANCOMYCIN HCL 1.25 GM in DEXTROSE 5%-WATER 250 ML IV SCH ×2 (11:48→20:07)
[2020-11-02] MEDS: DOCUSATE SODIUM 100 MG CAPSULE PO SCH ×2 (11:48→20:06)
[2020-11-02] MEDS: HEPARIN SODIUM 25000 UNITS/D5W 250 ML IV PRN (16:46)
[2020-11-02] MEDS: ATORVASTATIN CALCIUM 10 MG TABLET PO SCH (20:06)
[2020-11-03 03:30] VITALS: BP 113/62
[2020-11-03] MEDS: HEPARIN SODIUM 25000 UNITS/D5W 250 ML IV PRN ×2 (03:52→20:32)
[2020-11-03 07:24] VITALS: BP 115/68
[2020-11-03 07:24] LABS: BASOPHILS % (AUTO) 1.1 % (0.0-2.0); EOSINOPHILS % (AUTO) 1.1 % (1.0-6.0); HEMOGLOBIN 10.4 g/dL (12.0-16.0); LYMPHOCYTES # (AUTO) 2.4 K/uL (1.0-4.8); LYMPHOCYTES % (AUTO) 13.6 % (22.0-44.0); MEAN CORPUSCULAR HEMOGLOBIN 28.9 pg (26.0-34.0); MEAN CORPUSCULAR HGB CONC 32.4 G/dL (31.0-37.0); MEAN CORPUSCULAR VOLUME 89 fL (80-100); MONOCYTES # (AUTO) 0.7 K/uL (0.1-1.0); MONOCYTES % (AUTO) 4.2 % (2.0-9.0); NEUTROPHILS # (AUTO) 14.1 K/uL (1.8-7.7); PLATELET COUNT (AUTO) 723 K/uL (150-450); RED CELL DISTRIBUTION WIDTH 13.4 % (11.5-14.5)
[2020-11-03 07:39] LABS: ALANINE AMINOTRANSFERASE 23 U/L (12-78); ALBUMIN 3.9 g/dL (3.4-5.0); ALKALINE PHOSPHATASE 55 U/L (46-116); ANION GAP 5 mmol/L (8-16); ASPARTATE AMINOTRANSFERASE 27 U/L (15-37); CALCIUM, TOTAL 9.4 mg/dL (8.8-10.5); CARBON DIOXIDE 25 mmol/L (22-29); CHLORIDE 101 mmol/L (98-107); GLOMERULAR FILTR. RATE CALC > 60 mL/min (>60); GLUCOSE,RANDOM 94 mg/dL (70-110); POTASSIUM 3.9 mmol/L (3.5-5.1); SODIUM SERUM 131 mmol/L (136-145); TOTAL PROTEIN, SERUM 7.8 g/dL (6.4-8.2); UREA NITROGEN, BLOOD 15 mg/dL (7-18)
[2020-11-03] MEDS: DOCUSATE SODIUM 100 MG CAPSULE PO SCH ×2 (08:15→21:58)
[2020-11-03] MEDS: ASPIRIN 81 MG CHEWABLE TABLET PO SCH (08:15)
[2020-11-03] MEDS: PANTOPRAZOLE SODIUM 40 MG DR TABLET PO SCH (08:15)
[2020-11-03] MEDS: VANCOMYCIN HCL 1.25 GM in DEXTROSE 5%-WATER 250 ML IV SCH ×2 (08:17→21:58)
[2020-11-03 11:19] VITALS: BP 112/77
[2020-11-03 15:17] VITALS: BP 116/65
[2020-11-03 20:12] VITALS: BP 101/56
[2020-11-03] MEDS: HEPARIN SODIUM,PORCINE 5,000 UNITS/ML VIAL IVP PRN (21:57)
[2020-11-03] MEDS: ETHYL ALCOHOL 62% ANTISEPTIC NASAL INHALANT 0.6 ML AMPUL NASAL SCH (21:58)
[2020-11-03] MEDS: ATORVASTATIN CALCIUM 10 MG TABLET PO SCH (21:58)
[2020-11-03 23:39] VITALS: BP 124/63
[2020-11-04 04:15] VITALS: BP 112/66
[2020-11-04 06:31] LABS: EOSINOPHILS % (AUTO) 0.9 % (1.0-6.0); HEMATOCRIT 30.7 % (36-46); HEMOGLOBIN 10.1 g/dL (12.0-16.0); LYMPHOCYTES # (AUTO) 2.9 K/uL (1.0-4.8); MEAN CORPUSCULAR HEMOGLOBIN 29.5 pg (26.0-34.0); MEAN CORPUSCULAR VOLUME 89 fL (80-100); MONOCYTES # (AUTO) 0.8 K/uL (0.1-1.0); MONOCYTES % (AUTO) 5.2 % (2.0-9.0); NEUTROPHILS % (AUTO) 74.9 % (40.0-70.0); RED BLOOD CELL COUNT(AUTO) 3.44 MIL/uL (4.00-5.20); RED CELL DISTRIBUTION WIDTH 13.7 % (11.5-14.5)
[2020-11-04 06:49] LABS: PLATELET COUNT (AUTO) 753 K/uL (150-450)
[2020-11-04 07:01] LABS: ALANINE AMINOTRANSFERASE 23 U/L (12-78); ALBUMIN 3.8 g/dL (3.4-5.0); ALKALINE PHOSPHATASE 55 U/L (46-116); ANION GAP 10 mmol/L (8-16); ASPARTATE AMINOTRANSFERASE 26 U/L (15-37); C-REACTIVE PROTEIN QUANT 3.23 mg/dL (0.00-0.30); CALCIUM, TOTAL 9.6 mg/dL (8.8-10.5); CARBON DIOXIDE 26 mmol/L (22-29); CHLORIDE 100 mmol/L (98-107); CREATININE 0.59 mg/dL (0.60-1.30); GLOMERULAR FILTR. RATE CALC > 60 mL/min (>60); GLUCOSE,RANDOM 94 mg/dL (70-110); SODIUM SERUM 136 mmol/L (136-145); TOTAL PROTEIN, SERUM 7.8 g/dL (6.4-8.2); UREA NITROGEN, BLOOD 15 mg/dL (7-18); VANCOMYCIN,RANDOM 20.2 mcg/mL (25.0-50.0)
[2020-11-04 08:04] VITALS: BP 101/76
[2020-11-04] MEDS: ETHYL ALCOHOL 62% ANTISEPTIC NASAL INHALANT 0.6 ML AMPUL NASAL SCH ×2 (08:11→20:58)
[2020-11-04] MEDS: DOCUSATE SODIUM 100 MG CAPSULE PO SCH ×2 (08:11→20:58)
[2020-11-04] MEDS: ASPIRIN 81 MG CHEWABLE TABLET PO SCH (08:11)
[2020-11-04] MEDS: ACETAMINOPHEN 325 MG TABLET PO PRN ×2 (08:11→20:59)
[2020-11-04] MEDS: PANTOPRAZOLE SODIUM 40 MG DR TABLET PO SCH (08:11)
[2020-11-04] MEDS: HEPARIN SODIUM 25000 UNITS/D5W 250 ML IV PRN ×2 (08:16→21:29)
[2020-11-04] MEDS: VANCOMYCIN HCL 1.25 GM in DEXTROSE 5%-WATER 250 ML IV SCH ×2 (08:18→20:58)
[2020-11-04 12:17] VITALS: BP 115/76
[2020-11-04 15:08] VITALS: BP 100/69
[2020-11-04 19:33] VITALS: BP 104/61
[2020-11-04] MEDS: ATORVASTATIN CALCIUM 10 MG TABLET PO SCH (20:59)
[2020-11-04 23:29] VITALS: BP 108/55
[2020-11-05 05:45] VITALS: BP 104/59
[2020-11-05 07:28] VITALS: BP 109/61
[2020-11-05 07:28] LABS: ANION GAP 14 mmol/L (8-16); CALCIUM, TOTAL 9.8 mg/dL (8.8-10.5); CARBON DIOXIDE 25 mmol/L (22-29); CHLORIDE 101 mmol/L (98-107); CREATININE 0.59 mg/dL (0.60-1.30); GLOMERULAR FILTR. RATE CALC > 60 mL/min (>60); GLUCOSE,RANDOM 85 mg/dL (70-110); POTASSIUM 4.2 mmol/L (3.5-5.1); SODIUM SERUM 140 mmol/L (136-145); UREA NITROGEN, BLOOD 18 mg/dL (7-18)
[2020-11-05] MEDS: ETHYL ALCOHOL 62% ANTISEPTIC NASAL INHALANT 0.6 ML AMPUL NASAL SCH ×2 (08:10→20:34)
[2020-11-05] MEDS: ASPIRIN 81 MG CHEWABLE TABLET PO SCH (08:11)
[2020-11-05] MEDS: VANCOMYCIN HCL 1.25 GM in DEXTROSE 5%-WATER 250 ML IV SCH ×2 (08:11→20:35)
[2020-11-05] MEDS: PANTOPRAZOLE SODIUM 40 MG DR TABLET PO SCH (08:11)
[2020-11-05] MEDS: DOCUSATE SODIUM 100 MG CAPSULE PO SCH ×2 (08:11→20:34)
[2020-11-05] MEDS: HEPARIN SODIUM 25000 UNITS/D5W 250 ML IV PRN ×2 (09:04→21:09)
[2020-11-05 11:30] VITALS: BP 98/74
[2020-11-05 15:47] VITALS: BP 104/64
[2020-11-05 19:46] VITALS: BP 111/61
[2020-11-05] MEDS: ACETAMINOPHEN 325 MG TABLET PO PRN (20:34)
[2020-11-05] MEDS: ATORVASTATIN CALCIUM 10 MG TABLET PO SCH (20:34)
[2020-11-05 23:46] VITALS: BP 100/57
[2020-11-06 04:18] VITALS: BP 106/63
[2020-11-06 07:18] LABS: BASOPHILS % (AUTO) 1.4 % (0.0-2.0); EOSINOPHILS % (AUTO) 1.8 % (1.0-6.0); HEMATOCRIT 32.9 % (36-46); HEMOGLOBIN 11.1 g/dL (12.0-16.0); LYMPHOCYTES # (AUTO) 2.3 K/uL (1.0-4.8); LYMPHOCYTES % (AUTO) 21.9 % (22.0-44.0); MEAN CORPUSCULAR HEMOGLOBIN 29.9 pg (26.0-34.0); MEAN CORPUSCULAR HGB CONC 33.8 G/dL (31.0-37.0); MEAN CORPUSCULAR VOLUME 88 fL (80-100); MONOCYTES # (AUTO) 0.7 K/uL (0.1-1.0); MONOCYTES % (AUTO) 6.7 % (2.0-9.0); NEUTROPHILS # (AUTO) 7.3 K/uL (1.8-7.7); NEUTROPHILS % (AUTO) 68.2 % (40.0-70.0); RED BLOOD CELL COUNT(AUTO) 3.72 MIL/uL (4.00-5.20); RED CELL DISTRIBUTION WIDTH 13.2 % (11.5-14.5)
[2020-11-06 07:19] LABS: ANION GAP 13 mmol/L (8-16); CALCIUM, TOTAL 9.8 mg/dL (8.8-10.5); CARBON DIOXIDE 25 mmol/L (22-29); CHLORIDE 101 mmol/L (98-107); CREATININE 0.48 mg/dL (0.60-1.30); GLOMERULAR FILTR. RATE CALC > 60 mL/min (>60); GLUCOSE,RANDOM 88 mg/dL (70-110); POTASSIUM 4.1 mmol/L (3.5-5.1); SODIUM SERUM 139 mmol/L (136-145); UREA NITROGEN, BLOOD 14 mg/dL (7-18)
[2020-11-06 07:44] VITALS: BP 114/63
[2020-11-06 08:29] LABS: PLATELET COUNT (AUTO) 789 K/uL (150-450)
[2020-11-06] MEDS: VANCOMYCIN HCL 1.25 GM in DEXTROSE 5%-WATER 250 ML IV SCH ×2 (08:39→22:28)
[2020-11-06] MEDS: PANTOPRAZOLE SODIUM 40 MG DR TABLET PO SCH (08:40)
[2020-11-06] MEDS: ASPIRIN 81 MG CHEWABLE TABLET PO SCH (08:40)
[2020-11-06] MEDS: ETHYL ALCOHOL 62% ANTISEPTIC NASAL INHALANT 0.6 ML AMPUL NASAL SCH ×2 (08:42→22:28)
[2020-11-06] MEDS: DOCUSATE SODIUM 100 MG CAPSULE PO SCH ×2 (09:22→22:28)
[2020-11-06] MEDS: HEPARIN SODIUM 25000 UNITS/D5W 250 ML IV PRN ×2 (09:35→23:50)
[2020-11-06 11:11] VITALS: BP 114/67
[2020-11-06 15:14] VITALS: BP 112/63
[2020-11-06 20:03] VITALS: BP 104/66
[2020-11-06] MEDS: ATORVASTATIN CALCIUM 10 MG TABLET PO SCH (22:28)
[2020-11-07 00:03] VITALS: BP 103/55
[2020-11-07 04:09] VITALS: BP 130/74
[2020-11-07] MEDS: ACETAMINOPHEN 325 MG TABLET PO PRN ×2 (06:01→20:10)
[2020-11-07 07:00] LABS: ANION GAP 14 mmol/L (8-16); CALCIUM, TOTAL 9.8 mg/dL (8.8-10.5); CARBON DIOXIDE 25 mmol/L (22-29); CHLORIDE 99 mmol/L (98-107); CREATININE 0.67 mg/dL (0.60-1.30); GLOMERULAR FILTR. RATE CALC > 60 mL/min (>60); GLUCOSE,RANDOM 92 mg/dL (70-110); POTASSIUM 4.1 mmol/L (3.5-5.1); SODIUM SERUM 138 mmol/L (136-145); UREA NITROGEN, BLOOD 18 mg/dL (7-18); VANCOMYCIN,RANDOM 21.8 mcg/mL (25.0-50.0)
[2020-11-07 07:18] VITALS: BP 106/72
[2020-11-07] MEDS: VANCOMYCIN HCL 1.25 GM in DEXTROSE 5%-WATER 250 ML IV SCH ×2 (08:24→20:01)
[2020-11-07] MEDS: PANTOPRAZOLE SODIUM 40 MG DR TABLET PO SCH (08:25)
[2020-11-07] MEDS: ASPIRIN 81 MG CHEWABLE TABLET PO SCH (08:25)
[2020-11-07] MEDS: ETHYL ALCOHOL 62% ANTISEPTIC NASAL INHALANT 0.6 ML AMPUL NASAL SCH ×2 (08:25→20:01)
[2020-11-07] MEDS: ATORVASTATIN CALCIUM 10 MG TABLET PO SCH (08:25)
[2020-11-07] MEDS: DOCUSATE SODIUM 100 MG CAPSULE PO SCH ×2 (08:25→20:01)
[2020-11-07 11:41] VITALS: BP 108/69
[2020-11-07] MEDS ORDERED: IOHEXOL 350 MG/ML 100 ML VIAL ONE (13:30)
[2020-11-07] MEDS ORDERED: SODIUM CHLORIDE 0.9% 100 ML ONE (13:30)
[2020-11-07] MEDS: HEPARIN SODIUM 25000 UNITS/D5W 250 ML IV PRN (14:49)
[2020-11-07 15:30] VITALS: BP 102/67
[2020-11-07 20:03] VITALS: BP 126/53
[2020-11-08 00:08] VITALS: BP 115/50
[2020-11-08] MEDS: HYDROCODONE/ACETAMINOPHEN 5-325 MG TABLET PO PRN (00:21)
[2020-11-08] MEDS ORDERED: SODIUM CHLORIDE 0.9% 100 ML ONE (00:55)
[2020-11-08] MEDS ORDERED: IOHEXOL 350 MG/ML 150 ML VIAL ONE (00:55)
[2020-11-08] MEDS: MAGNESIUM HYDROXIDE SUSPENSION 30 ML UDCUP PO PRN (02:27)
[2020-11-08 05:26] VITALS: BP 132/68
[2020-11-08] MEDS: HEPARIN SODIUM 25000 UNITS/D5W 250 ML IV PRN ×2 (05:36→19:42)
[2020-11-08 07:53] VITALS: BP 122/70
[2020-11-08] MEDS: VANCOMYCIN HCL 1.25 GM in DEXTROSE 5%-WATER 250 ML IV SCH ×2 (08:28→19:44)
[2020-11-08] MEDS: ETHYL ALCOHOL 62% ANTISEPTIC NASAL INHALANT 0.6 ML AMPUL NASAL SCH ×2 (08:29→19:44)
[2020-11-08] MEDS: DOCUSATE SODIUM 100 MG CAPSULE PO SCH ×2 (08:29→20:02)
[2020-11-08] MEDS: PANTOPRAZOLE SODIUM 40 MG DR TABLET PO SCH (08:29)
[2020-11-08] MEDS: ASPIRIN 81 MG CHEWABLE TABLET PO SCH (08:29)
[2020-11-08] MEDS ORDERED: SODIUM CHLORIDE 0.9% 250 ML IV ONE (08:37)
[2020-11-08] MEDS: HEPARIN SODIUM,PORCINE 5,000 UNITS/ML VIAL IVP PRN (08:45)
[2020-11-08 11:28] VITALS: BP 117/72
[2020-11-08 15:17] VITALS: BP 116/71
[2020-11-08 20:09] VITALS: BP 112/76
[2020-11-08] MEDS: ATORVASTATIN CALCIUM 10 MG TABLET PO SCH (20:12)
[2020-11-09 00:15] VITALS: BP 118/76
[2020-11-09 04:32] VITALS: BP 131/70
[2020-11-09] MEDS: HYDROCODONE/ACETAMINOPHEN 5-325 MG TABLET PO PRN (05:06)
[2020-11-09] MEDS ORDERED: LIDOCAINE/PF 1% 30 ML VIAL ONE (08:42)
[2020-11-09] MEDS ORDERED: FentaNYL CITRATE PF 100 MCG/2 ML VIAL IVP ONE ×2 (09:00→09:15)
[2020-11-09] MEDS ORDERED: MIDAZOLAM HCL 2 MG/2 ML VIAL IVP ONE (09:15)
[2020-11-09] MEDS ORDERED: FentaNYL CITRATE PF 100 MCG/2 ML VIAL IVP PRN (10:30)
[2020-11-09] MEDS: ASPIRIN 81 MG CHEWABLE TABLET PO SCH (11:28)
[2020-11-09] MEDS: DOCUSATE SODIUM 100 MG CAPSULE PO SCH ×2 (11:28→21:15)
[2020-11-09] MEDS: PANTOPRAZOLE SODIUM 40 MG DR TABLET PO SCH (11:28)
[2020-11-09] MEDS: ETHYL ALCOHOL 62% ANTISEPTIC NASAL INHALANT 0.6 ML AMPUL NASAL SCH ×2 (11:28→21:15)
[2020-11-09] MEDS: VANCOMYCIN HCL 1.25 GM in DEXTROSE 5%-WATER 250 ML IV SCH ×2 (11:29→21:17)
[2020-11-09 11:44] VITALS: BP 115/72
[2020-11-09 12:46] LABS: BASOPHILS % (AUTO) 0.6 % (0.0-2.0); EOSINOPHILS % (AUTO) 3.6 % (1.0-6.0); HEMATOCRIT 34.4 % (36-46); HEMOGLOBIN 11.3 g/dL (12.0-16.0); LYMPHOCYTES # (AUTO) 2.1 K/uL (1.0-4.8); LYMPHOCYTES % (AUTO) 30.6 % (22.0-44.0); MEAN CORPUSCULAR HEMOGLOBIN 29.5 pg (26.0-34.0); MEAN CORPUSCULAR VOLUME 90 fL (80-100); MONOCYTES # (AUTO) 0.7 K/uL (0.1-1.0); MONOCYTES % (AUTO) 10.6 % (2.0-9.0); NEUTROPHILS # (AUTO) 3.8 K/uL (1.8-7.7); NEUTROPHILS % (AUTO) 54.6 % (40.0-70.0); PLATELET COUNT (AUTO) 664 K/uL (150-450); RED BLOOD CELL COUNT(AUTO) 3.84 MIL/uL (4.00-5.20); RED CELL DISTRIBUTION WIDTH 14.1 % (11.5-14.5)
[2020-11-09 13:00] LABS: ALANINE AMINOTRANSFERASE 23 U/L (12-78); ALBUMIN 4.2 g/dL (3.4-5.0); ALKALINE PHOSPHATASE 92 U/L (46-116); ANION GAP 16 mmol/L (8-16); ASPARTATE AMINOTRANSFERASE 26 U/L (15-37); BILIRUBIN,TOTAL 0.8 mg/dL (0.1-1.0); C-REACTIVE PROTEIN QUANT 1.31 mg/dL (0.00-0.30); CALCIUM, TOTAL 9.9 mg/dL (8.8-10.5); CARBON DIOXIDE 26 mmol/L (22-29); CHLORIDE 97 mmol/L (98-107); CREATININE 0.66 mg/dL (0.60-1.30); GLOMERULAR FILTR. RATE CALC > 60 mL/min (>60); GLUCOSE,RANDOM 117 mg/dL (70-110); SODIUM SERUM 139 mmol/L (136-145); TOTAL PROTEIN, SERUM 8.7 g/dL (6.4-8.2); UREA NITROGEN, BLOOD 16 mg/dL (7-18)
[2020-11-09 13:05] LABS: INR 1.1 (0.9-1.1); PROTHROMBIN TIME 11.4 SEC (9.4-11.6)
[2020-11-09 16:36] VITALS: BP 107/70
[2020-11-09] MEDS ORDERED: MAGNESIUM HYDROXIDE SUSPENSION 30 ML UDCUP PO ONE (16:45)
[2020-11-09] MEDS: MAGNESIUM HYDROXIDE SUSPENSION 30 ML UDCUP PO PRN (19:40)
[2020-11-09 20:19] VITALS: BP 115/67
[2020-11-09] MEDS: HEPARIN SODIUM 25000 UNITS/D5W 250 ML IV PRN (21:04)
[2020-11-09] MEDS: ATORVASTATIN CALCIUM 10 MG TABLET PO SCH (21:15)
[2020-11-09] MEDS: HEPARIN SODIUM,PORCINE 5,000 UNITS/ML VIAL IVP PRN (22:33)
[2020-11-10 00:13] VITALS: BP 111/67
[2020-11-10 04:06] VITALS: BP 114/66
[2020-11-10] MEDS: HYDROCODONE/ACETAMINOPHEN 5-325 MG TABLET PO PRN (05:42)
[2020-11-10] MEDS: HEPARIN SODIUM 25000 UNITS/D5W 250 ML IV PRN (06:01)
[2020-11-10] MEDS: MAGNESIUM HYDROXIDE SUSPENSION 30 ML UDCUP PO PRN (07:39)
[2020-11-10] MEDS: PANTOPRAZOLE SODIUM 40 MG DR TABLET PO SCH (07:41)
[2020-11-10] MEDS: DOCUSATE SODIUM 100 MG CAPSULE PO SCH ×3 (07:41→21:00)
[2020-11-10] MEDS: ASPIRIN 81 MG CHEWABLE TABLET PO SCH (07:41)
[2020-11-10] MEDS: VANCOMYCIN HCL 1.25 GM in DEXTROSE 5%-WATER 250 ML IV SCH ×2 (07:41→20:21)
[2020-11-10] MEDS: ETHYL ALCOHOL 62% ANTISEPTIC NASAL INHALANT 0.6 ML AMPUL NASAL SCH ×2 (07:43→20:59)
[2020-11-10 08:08] VITALS: BP 109/65
[2020-11-10 08:41] LABS: BASOPHILS % (AUTO) 1.3 % (0.0-2.0); EOSINOPHILS % (AUTO) 3.5 % (1.0-6.0); HEMATOCRIT 34.7 % (36-46); HEMOGLOBIN 11.5 g/dL (12.0-16.0); LYMPHOCYTES # (AUTO) 2.2 K/uL (1.0-4.8); LYMPHOCYTES % (AUTO) 25.7 % (22.0-44.0); MEAN CORPUSCULAR HEMOGLOBIN 29.7 pg (26.0-34.0); MEAN CORPUSCULAR VOLUME 90 fL (80-100); MONOCYTES # (AUTO) 0.6 K/uL (0.1-1.0); MONOCYTES % (AUTO) 7.4 % (2.0-9.0); NEUTROPHILS # (AUTO) 5.4 K/uL (1.8-7.7); NEUTROPHILS % (AUTO) 62.1 % (40.0-70.0); PLATELET COUNT (AUTO) 657 K/uL (150-450); RED BLOOD CELL COUNT(AUTO) 3.86 MIL/uL (4.00-5.20); RED CELL DISTRIBUTION WIDTH 14.3 % (11.5-14.5)
[2020-11-10 08:58] LABS: ALANINE AMINOTRANSFERASE 86 U/L (12-78); ALKALINE PHOSPHATASE 357 U/L (46-116); ANION GAP 11 mmol/L (8-16); ASPARTATE AMINOTRANSFERASE 70 U/L (15-37); BILIRUBIN,TOTAL 0.9 mg/dL (0.1-1.0); CALCIUM, TOTAL 10.1 mg/dL (8.8-10.5); CARBON DIOXIDE 27 mmol/L (22-29); CHLORIDE 97 mmol/L (98-107); CREATININE 0.56 mg/dL (0.60-1.30); GLOMERULAR FILTR. RATE CALC > 60 mL/min (>60); GLUCOSE,RANDOM 88 mg/dL (70-110); POTASSIUM 3.9 mmol/L (3.5-5.1); SODIUM SERUM 135 mmol/L (136-145); TOTAL PROTEIN, SERUM 8.5 g/dL (6.4-8.2); UREA NITROGEN, BLOOD 19 mg/dL (7-18)
[2020-11-10] MEDS ORDERED: SODIUM CHLORIDE 0.9% 250 ML IV ONE (09:54)
[2020-11-10 12:31] VITALS: BP 105/70
[2020-11-10 16:36] VITALS: BP 109/63
[2020-11-10 19:44] VITALS: BP 106/72
[2020-11-10] MEDS: ATORVASTATIN CALCIUM 10 MG TABLET PO SCH (20:59)
[2020-11-10] MEDS ORDERED: DiphenhydrAMINE HCL 25 MG CAPSULE PO PRN (21:30)
[2020-11-11] VITALS (7 sets, daily range): BP systolic 99–109; BP diastolic 56–66
[2020-11-11] MEDS: HEPARIN SODIUM 25000 UNITS/D5W 250 ML IV PRN ×3 (00:38→20:22)
[2020-11-11 05:21] LABS: BASOPHILS % (AUTO) 1.3 % (0.0-2.0); EOSINOPHILS % (AUTO) 6.4 % (1.0-6.0); HEMOGLOBIN 11.5 g/dL (12.0-16.0); LYMPHOCYTES # (AUTO) 2.1 K/uL (1.0-4.8); LYMPHOCYTES % (AUTO) 32.6 % (22.0-44.0); MEAN CORPUSCULAR HEMOGLOBIN 29.9 pg (26.0-34.0); MEAN CORPUSCULAR HGB CONC 33.8 G/dL (31.0-37.0); MEAN CORPUSCULAR VOLUME 88 fL (80-100); MONOCYTES # (AUTO) 0.6 K/uL (0.1-1.0); MONOCYTES % (AUTO) 9.8 % (2.0-9.0); NEUTROPHILS # (AUTO) 3.2 K/uL (1.8-7.7); NEUTROPHILS % (AUTO) 49.9 % (40.0-70.0); PLATELET COUNT (AUTO) 559 K/uL (150-450); RED BLOOD CELL COUNT(AUTO) 3.84 MIL/uL (4.00-5.20); RED CELL DISTRIBUTION WIDTH 14.5 % (11.5-14.5)
[2020-11-11 05:44] LABS: ALANINE AMINOTRANSFERASE 85 U/L (12-78); ALBUMIN 3.9 g/dL (3.4-5.0); ALKALINE PHOSPHATASE 372 U/L (46-116); ANION GAP 8 mmol/L (8-16); ASPARTATE AMINOTRANSFERASE 40 U/L (15-37); BILIRUBIN,TOTAL 0.9 mg/dL (0.1-1.0); CALCIUM, TOTAL 9.5 mg/dL (8.8-10.5); CARBON DIOXIDE 28 mmol/L (22-29); CHLORIDE 98 mmol/L (98-107); CREATININE 0.71 mg/dL (0.60-1.30); GLOMERULAR FILTR. RATE CALC > 60 mL/min (>60); GLUCOSE,RANDOM 102 mg/dL (70-110); POTASSIUM 4.2 mmol/L (3.5-5.1); SODIUM SERUM 134 mmol/L (136-145); TOTAL PROTEIN, SERUM 8.5 g/dL (6.4-8.2); UREA NITROGEN, BLOOD 14 mg/dL (7-18)
[2020-11-11] MEDS: DOCUSATE SODIUM 100 MG CAPSULE PO SCH ×2 (08:24→20:13)
[2020-11-11] MEDS: PANTOPRAZOLE SODIUM 40 MG DR TABLET PO SCH (08:24)
[2020-11-11] MEDS: VANCOMYCIN HCL 1.25 GM in DEXTROSE 5%-WATER 250 ML IV SCH ×2 (08:24→20:13)
[2020-11-11] MEDS: ASPIRIN 81 MG CHEWABLE TABLET PO SCH (08:25)
[2020-11-11] MEDS: ETHYL ALCOHOL 62% ANTISEPTIC NASAL INHALANT 0.6 ML AMPUL NASAL SCH ×2 (08:25→20:14)
[2020-11-11] MEDS ORDERED: SODIUM CHLORIDE 0.9% 500 ML IV ONE (09:39)
[2020-11-11] MEDS: ACETAMINOPHEN 325 MG TABLET PO PRN (09:45)
[2020-11-11] MEDS: HEPARIN SODIUM,PORCINE 5,000 UNITS/ML VIAL IVP PRN (11:50)
[2020-11-11] MEDS: ATORVASTATIN CALCIUM 10 MG TABLET PO SCH (20:13)
[2020-11-12] VITALS (7 sets, daily range): BP systolic 92–110; BP diastolic 58–71
[2020-11-12 07:23] LABS: BASOPHILS % (AUTO) 2.7 % (0.0-2.0); EOSINOPHILS % (AUTO) 6.8 % (1.0-6.0); HEMATOCRIT 34.9 % (36-46); HEMOGLOBIN 11.6 g/dL (12.0-16.0); LYMPHOCYTES # (AUTO) 2.2 K/uL (1.0-4.8); LYMPHOCYTES % (AUTO) 33.9 % (22.0-44.0); MEAN CORPUSCULAR HEMOGLOBIN 29.5 pg (26.0-34.0); MEAN CORPUSCULAR HGB CONC 33.2 G/dL (31.0-37.0); MEAN CORPUSCULAR VOLUME 89 fL (80-100); MONOCYTES # (AUTO) 0.7 K/uL (0.1-1.0); MONOCYTES % (AUTO) 10.7 % (2.0-9.0); NEUTROPHILS # (AUTO) 2.9 K/uL (1.8-7.7); NEUTROPHILS % (AUTO) 45.9 % (40.0-70.0); PLATELET COUNT (AUTO) 541 K/uL (150-450); RED BLOOD CELL COUNT(AUTO) 3.93 MIL/uL (4.00-5.20); RED CELL DISTRIBUTION WIDTH 14.8 % (11.5-14.5)
[2020-11-12 07:38] LABS: ALANINE AMINOTRANSFERASE 53 U/L (12-78); ALBUMIN 3.7 g/dL (3.4-5.0); ALKALINE PHOSPHATASE 277 U/L (46-116); ANION GAP 8 mmol/L (8-16); ASPARTATE AMINOTRANSFERASE 22 U/L (15-37); BILIRUBIN,TOTAL 0.7 mg/dL (0.1-1.0); CALCIUM, TOTAL 9.5 mg/dL (8.8-10.5); CARBON DIOXIDE 26 mmol/L (22-29); CHLORIDE 100 mmol/L (98-107); CREATININE 0.74 mg/dL (0.60-1.30); GLOMERULAR FILTR. RATE CALC > 60 mL/min (>60); GLUCOSE,RANDOM 96 mg/dL (70-110); POTASSIUM 4.1 mmol/L (3.5-5.1); SODIUM SERUM 134 mmol/L (136-145); TOTAL PROTEIN, SERUM 8.4 g/dL (6.4-8.2); UREA NITROGEN, BLOOD 20 mg/dL (7-18)
[2020-11-12] MEDS: HEPARIN SODIUM 25000 UNITS/D5W 250 ML IV PRN ×2 (07:44→18:12)
[2020-11-12] MEDS: DOCUSATE SODIUM 100 MG CAPSULE PO SCH ×2 (08:03→20:28)
[2020-11-12] MEDS: VANCOMYCIN HCL 1.25 GM in DEXTROSE 5%-WATER 250 ML IV SCH ×2 (08:13→20:28)
[2020-11-12] MEDS: ETHYL ALCOHOL 62% ANTISEPTIC NASAL INHALANT 0.6 ML AMPUL NASAL SCH ×2 (08:13→20:28)
[2020-11-12] MEDS: ASPIRIN 81 MG CHEWABLE TABLET PO SCH (08:14)
[2020-11-12] MEDS: PANTOPRAZOLE SODIUM 40 MG DR TABLET PO SCH (08:14)
[2020-11-12] MEDS: ATORVASTATIN CALCIUM 10 MG TABLET PO SCH (20:28)
[2020-11-12] MEDS ORDERED: SODIUM CHLORIDE 0.9% 100 ML ONE (20:34)
[2020-11-13 04:56] VITALS: BP 103/62
[2020-11-13] MEDS: HEPARIN SODIUM 25000 UNITS/D5W 250 ML IV PRN ×2 (05:32→22:20)
[2020-11-13 07:45] LABS: BASOPHILS % (AUTO) 3.2 % (0.0-2.0); EOSINOPHILS % (AUTO) 7.9 % (1.0-6.0); HEMOGLOBIN 11.3 g/dL (12.0-16.0); LYMPHOCYTES # (AUTO) 2.3 K/uL (1.0-4.8); LYMPHOCYTES % (AUTO) 34.8 % (22.0-44.0); MEAN CORPUSCULAR HEMOGLOBIN 29.7 pg (26.0-34.0); MEAN CORPUSCULAR HGB CONC 33.3 G/dL (31.0-37.0); MEAN CORPUSCULAR VOLUME 89 fL (80-100); MONOCYTES # (AUTO) 0.7 K/uL (0.1-1.0); MONOCYTES % (AUTO) 10.1 % (2.0-9.0); NEUTROPHILS # (AUTO) 2.9 K/uL (1.8-7.7); PLATELET COUNT (AUTO) 535 K/uL (150-450); RED BLOOD CELL COUNT(AUTO) 3.81 MIL/uL (4.00-5.20); RED CELL DISTRIBUTION WIDTH 14.8 % (11.5-14.5)
[2020-11-13 08:27] LABS: ALANINE AMINOTRANSFERASE 40 U/L (12-78); ALBUMIN 3.6 g/dL (3.4-5.0); ALKALINE PHOSPHATASE 217 U/L (46-116); ANION GAP 11 mmol/L (8-16); ASPARTATE AMINOTRANSFERASE 19 U/L (15-37); BILIRUBIN,TOTAL 0.7 mg/dL (0.1-1.0); CALCIUM, TOTAL 9.3 mg/dL (8.8-10.5); CARBON DIOXIDE 24 mmol/L (22-29); CHLORIDE 102 mmol/L (98-107); CREATININE 0.65 mg/dL (0.60-1.30); GLOMERULAR FILTR. RATE CALC > 60 mL/min (>60); GLUCOSE,RANDOM 88 mg/dL (70-110); SODIUM SERUM 137 mmol/L (136-145); TOTAL PROTEIN, SERUM 8.1 g/dL (6.4-8.2); UREA NITROGEN, BLOOD 17 mg/dL (7-18)
[2020-11-13 08:35] VITALS: BP 103/64
[2020-11-13] MEDS: VANCOMYCIN HCL 1.25 GM in DEXTROSE 5%-WATER 250 ML IV SCH ×2 (08:37→20:42)
[2020-11-13] MEDS: DOCUSATE SODIUM 100 MG CAPSULE PO SCH ×2 (08:37→20:42)
[2020-11-13] MEDS: PANTOPRAZOLE SODIUM 40 MG DR TABLET PO SCH (08:37)
[2020-11-13] MEDS: ETHYL ALCOHOL 62% ANTISEPTIC NASAL INHALANT 0.6 ML AMPUL NASAL SCH ×2 (08:38→20:42)
[2020-11-13] MEDS: ASPIRIN 81 MG CHEWABLE TABLET PO SCH (08:38)
[2020-11-13 12:41] VITALS: BP 100/71
[2020-11-13 17:26] VITALS: BP 96/63
[2020-11-13 20:13] VITALS: BP 105/68
[2020-11-13] MEDS: ATORVASTATIN CALCIUM 10 MG TABLET PO SCH (20:42)
[2020-11-13] MEDS: ACETAMINOPHEN 325 MG TABLET PO PRN (21:18)
[2020-11-13 23:41] VITALS: BP 100/66
[2020-11-14 03:51] VITALS: BP 90/65
[2020-11-14 07:42] LABS: BASOPHILS % (AUTO) 3.7 % (0.0-2.0); EOSINOPHILS % (AUTO) 10.5 % (1.0-6.0); HEMATOCRIT 35.5 % (36-46); HEMOGLOBIN 11.9 g/dL (12.0-16.0); LYMPHOCYTES # (AUTO) 2.2 K/uL (1.0-4.8); LYMPHOCYTES % (AUTO) 37.2 % (22.0-44.0); MEAN CORPUSCULAR HEMOGLOBIN 29.7 pg (26.0-34.0); MEAN CORPUSCULAR HGB CONC 33.6 G/dL (31.0-37.0); MEAN CORPUSCULAR VOLUME 89 fL (80-100); MONOCYTES # (AUTO) 0.7 K/uL (0.1-1.0); MONOCYTES % (AUTO) 11.3 % (2.0-9.0); NEUTROPHILS # (AUTO) 2.2 K/uL (1.8-7.7); NEUTROPHILS % (AUTO) 37.3 % (40.0-70.0); PLATELET COUNT (AUTO) 539 K/uL (150-450); RED BLOOD CELL COUNT(AUTO) 4.01 MIL/uL (4.00-5.20); RED CELL DISTRIBUTION WIDTH 14.9 % (11.5-14.5)
[2020-11-14 08:01] VITALS: BP 116/60
[2020-11-14 08:08] LABS: ALANINE AMINOTRANSFERASE 36 U/L (12-78); ALBUMIN 3.7 g/dL (3.4-5.0); ALKALINE PHOSPHATASE 199 U/L (46-116); ANION GAP 12 mmol/L (8-16); ASPARTATE AMINOTRANSFERASE 21 U/L (15-37); BILIRUBIN,TOTAL 0.8 mg/dL (0.1-1.0); C-REACTIVE PROTEIN QUANT 0.62 mg/dL (0.00-0.30); CALCIUM, TOTAL 9.6 mg/dL (8.8-10.5); CARBON DIOXIDE 25 mmol/L (22-29); CHLORIDE 101 mmol/L (98-107); CREATININE 0.66 mg/dL (0.60-1.30); GLOMERULAR FILTR. RATE CALC > 60 mL/min (>60); GLUCOSE,RANDOM 84 mg/dL (70-110); POTASSIUM 4.1 mmol/L (3.5-5.1); SODIUM SERUM 138 mmol/L (136-145); TOTAL PROTEIN, SERUM 8.4 g/dL (6.4-8.2); UREA NITROGEN, BLOOD 18 mg/dL (7-18)
[2020-11-14 08:12] VITALS: BP 113/74
[2020-11-14] MEDS: ETHYL ALCOHOL 62% ANTISEPTIC NASAL INHALANT 0.6 ML AMPUL NASAL SCH ×2 (08:29→21:20)
[2020-11-14] MEDS: VANCOMYCIN HCL 1.25 GM in DEXTROSE 5%-WATER 250 ML IV SCH ×2 (08:29→20:18)
[2020-11-14] MEDS: ASPIRIN 81 MG CHEWABLE TABLET PO SCH (08:30)
[2020-11-14] MEDS: DOCUSATE SODIUM 100 MG CAPSULE PO SCH ×2 (08:30→21:20)
[2020-11-14] MEDS: PANTOPRAZOLE SODIUM 40 MG DR TABLET PO SCH (08:30)
[2020-11-14] MEDS: HEPARIN SODIUM,PORCINE 5,000 UNITS/ML VIAL IVP PRN (09:10)
[2020-11-14] MEDS: HYDROCODONE/ACETAMINOPHEN 5-325 MG TABLET PO PRN (11:24)
[2020-11-14 12:07] VITALS: BP 104/66
[2020-11-14] MEDS: HEPARIN SODIUM 25000 UNITS/D5W 250 ML IV PRN (14:39)
[2020-11-14 16:29] VITALS: BP 109/69
[2020-11-14 19:27] VITALS: BP 106/66
[2020-11-14] MEDS: ATORVASTATIN CALCIUM 10 MG TABLET PO SCH (21:20)
[2020-11-15] VITALS (7 sets, daily range): BP systolic 94–104; BP diastolic 58–67
[2020-11-15] MEDS: HEPARIN SODIUM 25000 UNITS/D5W 250 ML IV PRN ×2 (05:19→20:10)
[2020-11-15 06:09] LABS: BASOPHILS % (AUTO) 2.7 % (0.0-2.0); EOSINOPHILS % (AUTO) 8.5 % (1.0-6.0); HEMATOCRIT 35.1 % (36-46); HEMOGLOBIN 11.9 g/dL (12.0-16.0); LYMPHOCYTES # (AUTO) 2.6 K/uL (1.0-4.8); LYMPHOCYTES % (AUTO) 34.6 % (22.0-44.0); MEAN CORPUSCULAR HEMOGLOBIN 29.7 pg (26.0-34.0); MEAN CORPUSCULAR HGB CONC 33.7 G/dL (31.0-37.0); MEAN CORPUSCULAR VOLUME 88 fL (80-100); MONOCYTES # (AUTO) 0.8 K/uL (0.1-1.0); MONOCYTES % (AUTO) 10.6 % (2.0-9.0); NEUTROPHILS # (AUTO) 3.2 K/uL (1.8-7.7); NEUTROPHILS % (AUTO) 43.6 % (40.0-70.0); PLATELET COUNT (AUTO) 508 K/uL (150-450); RED BLOOD CELL COUNT(AUTO) 3.99 MIL/uL (4.00-5.20)
[2020-11-15 06:42] LABS: ALANINE AMINOTRANSFERASE 35 U/L (12-78); ALBUMIN 3.8 g/dL (3.4-5.0); ALKALINE PHOSPHATASE 180 U/L (46-116); ANION GAP 9 mmol/L (8-16); ASPARTATE AMINOTRANSFERASE 23 U/L (15-37); BILIRUBIN,TOTAL 0.7 mg/dL (0.1-1.0); CALCIUM, TOTAL 9.6 mg/dL (8.8-10.5); CARBON DIOXIDE 25 mmol/L (22-29); CHLORIDE 99 mmol/L (98-107); GLOMERULAR FILTR. RATE CALC > 60 mL/min (>60); GLUCOSE,RANDOM 98 mg/dL (70-110); SODIUM SERUM 133 mmol/L (136-145); TOTAL PROTEIN, SERUM 8.5 g/dL (6.4-8.2); UREA NITROGEN, BLOOD 18 mg/dL (7-18); VANCOMYCIN,RANDOM 19.3 mcg/mL (25.0-50.0)
[2020-11-15] MEDS: VANCOMYCIN HCL 1.25 GM in DEXTROSE 5%-WATER 250 ML IV SCH ×2 (08:43→20:09)
[2020-11-15] MEDS: PANTOPRAZOLE SODIUM 40 MG DR TABLET PO SCH (08:43)
[2020-11-15] MEDS: ASPIRIN 81 MG CHEWABLE TABLET PO SCH (08:43)
[2020-11-15] MEDS: ETHYL ALCOHOL 62% ANTISEPTIC NASAL INHALANT 0.6 ML AMPUL NASAL SCH ×2 (08:43→20:09)
[2020-11-15] MEDS: DOCUSATE SODIUM 100 MG CAPSULE PO SCH ×2 (08:43→20:09)
[2020-11-15] MEDS: ATORVASTATIN CALCIUM 10 MG TABLET PO SCH (20:09)
[2020-11-16 04:22] VITALS: BP 97/61
[2020-11-16 07:07] VITALS: BP 100/59
[2020-11-16] MEDS: VANCOMYCIN HCL 1.25 GM in DEXTROSE 5%-WATER 250 ML IV SCH ×2 (08:17→20:30)
[2020-11-16] MEDS: DOCUSATE SODIUM 100 MG CAPSULE PO SCH ×2 (08:17→20:30)
[2020-11-16] MEDS: ASPIRIN 81 MG CHEWABLE TABLET PO SCH (08:17)
[2020-11-16] MEDS: ETHYL ALCOHOL 62% ANTISEPTIC NASAL INHALANT 0.6 ML AMPUL NASAL SCH ×2 (08:18→20:31)
[2020-11-16] MEDS: PANTOPRAZOLE SODIUM 40 MG DR TABLET PO SCH (08:18)
[2020-11-16 09:05] LABS: BASOPHILS % (AUTO) 2.6 % (0.0-2.0); EOSINOPHILS % (AUTO) 9.3 % (1.0-6.0); HEMATOCRIT 36.2 % (36-46); LYMPHOCYTES # (AUTO) 3.2 K/uL (1.0-4.8); LYMPHOCYTES % (AUTO) 38.5 % (22.0-44.0); MEAN CORPUSCULAR HEMOGLOBIN 29.6 pg (26.0-34.0); MEAN CORPUSCULAR HGB CONC 33.1 G/dL (31.0-37.0); MEAN CORPUSCULAR VOLUME 89 fL (80-100); MONOCYTES # (AUTO) 0.8 K/uL (0.1-1.0); MONOCYTES % (AUTO) 9.7 % (2.0-9.0); NEUTROPHILS # (AUTO) 3.3 K/uL (1.8-7.7); NEUTROPHILS % (AUTO) 39.9 % (40.0-70.0); PLATELET COUNT (AUTO) 491 K/uL (150-450); RED BLOOD CELL COUNT(AUTO) 4.06 MIL/uL (4.00-5.20); RED CELL DISTRIBUTION WIDTH 14.6 % (11.5-14.5)
[2020-11-16 09:34] LABS: ALANINE AMINOTRANSFERASE 44 U/L (12-78); ALBUMIN 3.7 g/dL (3.4-5.0); ALKALINE PHOSPHATASE 168 U/L (46-116); ANION GAP 10 mmol/L (8-16); ASPARTATE AMINOTRANSFERASE 35 U/L (15-37); BILIRUBIN,TOTAL 0.7 mg/dL (0.1-1.0); CARBON DIOXIDE 24 mmol/L (22-29); CHLORIDE 100 mmol/L (98-107); CREATININE 0.65 mg/dL (0.60-1.30); GLOMERULAR FILTR. RATE CALC > 60 mL/min (>60); GLUCOSE,RANDOM 85 mg/dL (70-110); POTASSIUM 4.3 mmol/L (3.5-5.1); SODIUM SERUM 134 mmol/L (136-145); TOTAL PROTEIN, SERUM 8.7 g/dL (6.4-8.2); UREA NITROGEN, BLOOD 18 mg/dL (7-18)
[2020-11-16] MEDS ORDERED: SODIUM CHLORIDE 0.9% 500 ML IV ONE (10:23)
[2020-11-16] MEDS: HEPARIN SODIUM 25000 UNITS/D5W 250 ML IV PRN (10:26)
[2020-11-16 11:43] VITALS: BP 96/66
[2020-11-16 15:29] VITALS: BP 106/70
[2020-11-16 19:35] VITALS: BP 120/67
[2020-11-16] MEDS: ATORVASTATIN CALCIUM 10 MG TABLET PO SCH (20:31)
[2020-11-16] MEDS: APIXABAN 5 MG TABLET PO SCH (20:33)
[2020-11-16 23:30] VITALS: BP 99/71
[2020-11-17 03:45] VITALS: BP 100/70
[2020-11-17 07:03] VITALS: BP 98/66
[2020-11-17] MEDS: VANCOMYCIN HCL 1.25 GM in DEXTROSE 5%-WATER 250 ML IV SCH ×2 (08:21→20:14)
[2020-11-17] MEDS: APIXABAN 5 MG TABLET PO SCH ×2 (08:30→20:56)
[2020-11-17] MEDS: ASPIRIN 81 MG CHEWABLE TABLET PO SCH (08:31)
[2020-11-17] MEDS: ATORVASTATIN CALCIUM 10 MG TABLET PO SCH (08:31)
[2020-11-17] MEDS: DOCUSATE SODIUM 100 MG CAPSULE PO SCH ×2 (08:31→20:56)
[2020-11-17 08:32] LABS: ANION GAP 14 mmol/L (8-16); CALCIUM, TOTAL 9.7 mg/dL (8.8-10.5); CARBON DIOXIDE 24 mmol/L (22-29); CHLORIDE 98 mmol/L (98-107); CREATININE 0.68 mg/dL (0.60-1.30); GLOMERULAR FILTR. RATE CALC > 60 mL/min (>60); GLUCOSE,RANDOM 87 mg/dL (70-110); POTASSIUM 4.4 mmol/L (3.5-5.1); SODIUM SERUM 136 mmol/L (136-145); UREA NITROGEN, BLOOD 19 mg/dL (7-18)
[2020-11-17] MEDS: ETHYL ALCOHOL 62% ANTISEPTIC NASAL INHALANT 0.6 ML AMPUL NASAL SCH ×2 (08:32→20:56)
[2020-11-17] MEDS: PANTOPRAZOLE SODIUM 40 MG DR TABLET PO SCH (08:32)
[2020-11-17 11:34] VITALS: BP 100/70
[2020-11-17 15:29] VITALS: BP 99/68
[2020-11-17 19:09] VITALS: BP 102/67
[2020-11-18 00:08] VITALS: BP 98/59
[2020-11-18 04:30] VITALS: BP 99/64
[2020-11-18 07:20] VITALS: BP 103/63
[2020-11-18 07:39] LABS: ANION GAP 12 mmol/L (8-16); CALCIUM, TOTAL 9.5 mg/dL (8.8-10.5); CARBON DIOXIDE 25 mmol/L (22-29); CHLORIDE 100 mmol/L (98-107); CREATININE 0.66 mg/dL (0.60-1.30); GLOMERULAR FILTR. RATE CALC > 60 mL/min (>60); GLUCOSE,RANDOM 91 mg/dL (70-110); SODIUM SERUM 137 mmol/L (136-145); UREA NITROGEN, BLOOD 18 mg/dL (7-18); VANCOMYCIN,RANDOM 22.5 mcg/mL (25.0-50.0)
[2020-11-18] MEDS: VANCOMYCIN HCL 1.25 GM in DEXTROSE 5%-WATER 250 ML IV SCH ×2 (08:50→20:24)
[2020-11-18] MEDS: PANTOPRAZOLE SODIUM 40 MG DR TABLET PO SCH (08:50)
[2020-11-18] MEDS: ETHYL ALCOHOL 62% ANTISEPTIC NASAL INHALANT 0.6 ML AMPUL NASAL SCH ×2 (08:50→20:24)
[2020-11-18] MEDS: ASPIRIN 81 MG CHEWABLE TABLET PO SCH (08:50)
[2020-11-18] MEDS: APIXABAN 5 MG TABLET PO SCH ×2 (08:50→20:24)
[2020-11-18] MEDS: DOCUSATE SODIUM 100 MG CAPSULE PO SCH ×2 (08:51→20:24)
[2020-11-18 11:01] VITALS: BP 102/76
[2020-11-18 15:19] VITALS: BP 104/71
[2020-11-18 20:23] VITALS: BP 100/59
[2020-11-18] MEDS: ATORVASTATIN CALCIUM 10 MG TABLET PO SCH (20:24)
[2020-11-19 00:06] VITALS: BP 94/56
[2020-11-19 04:27] VITALS: BP 100/64
[2020-11-19 07:11] LABS: BASOPHILS % (AUTO) 3.7 % (0.0-2.0); EOSINOPHILS % (AUTO) 7.5 % (1.0-6.0); HEMATOCRIT 34.7 % (36-46); HEMOGLOBIN 11.4 g/dL (12.0-16.0); LYMPHOCYTES # (AUTO) 2.5 K/uL (1.0-4.8); LYMPHOCYTES % (AUTO) 35.9 % (22.0-44.0); MEAN CORPUSCULAR HEMOGLOBIN 29.6 pg (26.0-34.0); MEAN CORPUSCULAR HGB CONC 32.8 G/dL (31.0-37.0); MEAN CORPUSCULAR VOLUME 90 fL (80-100); MONOCYTES # (AUTO) 0.7 K/uL (0.1-1.0); NEUTROPHILS % (AUTO) 42.9 % (40.0-70.0); PLATELET COUNT (AUTO) 530 K/uL (150-450); RED BLOOD CELL COUNT(AUTO) 3.86 MIL/uL (4.00-5.20)
[2020-11-19 07:58] LABS: ALANINE AMINOTRANSFERASE 33 U/L (12-78); ALBUMIN 3.5 g/dL (3.4-5.0); ALKALINE PHOSPHATASE 131 U/L (46-116); ANION GAP 10 mmol/L (8-16); ASPARTATE AMINOTRANSFERASE 23 U/L (15-37); BILIRUBIN,TOTAL 0.6 mg/dL (0.1-1.0); CALCIUM, TOTAL 9.1 mg/dL (8.8-10.5); CARBON DIOXIDE 25 mmol/L (22-29); CHLORIDE 101 mmol/L (98-107); CREATININE 0.65 mg/dL (0.60-1.30); GLOMERULAR FILTR. RATE CALC > 60 mL/min (>60); GLUCOSE,RANDOM 88 mg/dL (70-110); POTASSIUM 3.9 mmol/L (3.5-5.1); SODIUM SERUM 136 mmol/L (136-145); TOTAL PROTEIN, SERUM 8.1 g/dL (6.4-8.2); UREA NITROGEN, BLOOD 19 mg/dL (7-18)
[2020-11-19] MEDS: APIXABAN 5 MG TABLET PO SCH ×2 (08:16→20:15)
[2020-11-19] MEDS: VANCOMYCIN HCL 1.25 GM in DEXTROSE 5%-WATER 250 ML IV SCH ×2 (08:16→20:14)
[2020-11-19] MEDS: ASPIRIN 81 MG CHEWABLE TABLET PO SCH (08:16)
[2020-11-19] MEDS: ETHYL ALCOHOL 62% ANTISEPTIC NASAL INHALANT 0.6 ML AMPUL NASAL SCH ×2 (08:16→20:14)
[2020-11-19] MEDS: DOCUSATE SODIUM 100 MG CAPSULE PO SCH ×2 (08:17→20:14)
[2020-11-19] MEDS: PANTOPRAZOLE SODIUM 40 MG DR TABLET PO SCH (08:17)
[2020-11-19 12:16] VITALS: BP 101/70
[2020-11-19 15:48] VITALS: BP 95/59
[2020-11-19] MEDS: ATORVASTATIN CALCIUM 10 MG TABLET PO SCH (20:15)
[2020-11-19] MEDS ORDERED: SODIUM CHLORIDE 0.9% 250 ML IV ONE (20:19)
[2020-11-19 20:30] VITALS: BP 103/56
[2020-11-19 23:55] VITALS: BP 121/78
[2020-11-20 05:05] VITALS: BP 106/63
[2020-11-20 07:24] LABS: BASOPHILS % (AUTO) 3.4 % (0.0-2.0); EOSINOPHILS % (AUTO) 8.5 % (1.0-6.0); HEMATOCRIT 35.7 % (36-46); HEMOGLOBIN 11.8 g/dL (12.0-16.0); LYMPHOCYTES # (AUTO) 2.4 K/uL (1.0-4.8); LYMPHOCYTES % (AUTO) 39.6 % (22.0-44.0); MEAN CORPUSCULAR HEMOGLOBIN 29.6 pg (26.0-34.0); MEAN CORPUSCULAR VOLUME 90 fL (80-100); MONOCYTES # (AUTO) 0.6 K/uL (0.1-1.0); MONOCYTES % (AUTO) 10.5 % (2.0-9.0); NEUTROPHILS # (AUTO) 2.3 K/uL (1.8-7.7); PLATELET COUNT (AUTO) 536 K/uL (150-450); RED BLOOD CELL COUNT(AUTO) 3.99 MIL/uL (4.00-5.20); RED CELL DISTRIBUTION WIDTH 14.9 % (11.5-14.5)
[2020-11-20 07:29] LABS: ANION GAP 9 mmol/L (8-16); CALCIUM, TOTAL 9.6 mg/dL (8.8-10.5); CARBON DIOXIDE 28 mmol/L (22-29); CHLORIDE 101 mmol/L (98-107); CREATININE 0.49 mg/dL (0.60-1.30); GLOMERULAR FILTR. RATE CALC > 60 mL/min (>60); GLUCOSE,RANDOM 83 mg/dL (70-110); POTASSIUM 3.9 mmol/L (3.5-5.1); SODIUM SERUM 138 mmol/L (136-145); UREA NITROGEN, BLOOD 19 mg/dL (7-18)
[2020-11-20] MEDS: APIXABAN 5 MG TABLET PO SCH ×2 (08:13→20:09)
[2020-11-20] MEDS: ASPIRIN 81 MG CHEWABLE TABLET PO SCH (08:13)
[2020-11-20] MEDS: DOCUSATE SODIUM 100 MG CAPSULE PO SCH ×2 (08:13→20:09)
[2020-11-20] MEDS: ETHYL ALCOHOL 62% ANTISEPTIC NASAL INHALANT 0.6 ML AMPUL NASAL SCH ×2 (08:13→20:09)
[2020-11-20] MEDS: VANCOMYCIN HCL 1.25 GM in DEXTROSE 5%-WATER 250 ML IV SCH ×2 (08:13→20:09)
[2020-11-20] MEDS: PANTOPRAZOLE SODIUM 40 MG DR TABLET PO SCH (08:13)
[2020-11-20 08:32] VITALS: BP 108/66
[2020-11-20 11:54] VITALS: BP 112/73
[2020-11-20 16:20] VITALS: BP 103/62
[2020-11-20] MEDS: ATORVASTATIN CALCIUM 10 MG TABLET PO SCH (20:08)
[2020-11-20 21:07] VITALS: BP 100/56
[2020-11-21] VITALS (7 sets, daily range): BP systolic 96–115; BP diastolic 56–70
[2020-11-21 07:02] LABS: BASOPHILS % (AUTO) 4.2 % (0.0-2.0); EOSINOPHILS % (AUTO) 6.9 % (1.0-6.0); HEMATOCRIT 37.3 % (36-46); HEMOGLOBIN 12.3 g/dL (12.0-16.0); LYMPHOCYTES # (AUTO) 2.3 K/uL (1.0-4.8); LYMPHOCYTES % (AUTO) 39.1 % (22.0-44.0); MEAN CORPUSCULAR HEMOGLOBIN 29.8 pg (26.0-34.0); MEAN CORPUSCULAR HGB CONC 33.1 G/dL (31.0-37.0); MEAN CORPUSCULAR VOLUME 90 fL (80-100); MONOCYTES # (AUTO) 0.6 K/uL (0.1-1.0); MONOCYTES % (AUTO) 9.6 % (2.0-9.0); NEUTROPHILS # (AUTO) 2.4 K/uL (1.8-7.7); NEUTROPHILS % (AUTO) 40.2 % (40.0-70.0); PLATELET COUNT (AUTO) 528 K/uL (150-450); RED BLOOD CELL COUNT(AUTO) 4.14 MIL/uL (4.00-5.20); RED CELL DISTRIBUTION WIDTH 14.8 % (11.5-14.5)
[2020-11-21 07:20] LABS: ANION GAP 10 mmol/L (8-16); CALCIUM, TOTAL 9.6 mg/dL (8.8-10.5); CARBON DIOXIDE 27 mmol/L (22-29); CHLORIDE 102 mmol/L (98-107); CREATININE 0.57 mg/dL (0.60-1.30); GLOMERULAR FILTR. RATE CALC > 60 mL/min (>60); GLUCOSE,RANDOM 85 mg/dL (70-110); POTASSIUM 3.9 mmol/L (3.5-5.1); SODIUM SERUM 139 mmol/L (136-145); UREA NITROGEN, BLOOD 19 mg/dL (7-18)
[2020-11-21] MEDS: DOCUSATE SODIUM 100 MG CAPSULE PO SCH ×2 (07:55→20:57)
[2020-11-21] MEDS: ETHYL ALCOHOL 62% ANTISEPTIC NASAL INHALANT 0.6 ML AMPUL NASAL SCH ×2 (07:55→20:58)
[2020-11-21] MEDS: VANCOMYCIN HCL 1.25 GM in DEXTROSE 5%-WATER 250 ML IV SCH ×2 (07:55→20:58)
[2020-11-21] MEDS: ASPIRIN 81 MG CHEWABLE TABLET PO SCH (07:55)
[2020-11-21] MEDS: APIXABAN 5 MG TABLET PO SCH ×2 (07:56→20:57)
[2020-11-21] MEDS: PANTOPRAZOLE SODIUM 40 MG DR TABLET PO SCH (07:56)
[2020-11-21] MEDS ORDERED: IOHEXOL 350 MG/ML 100 ML VIAL ONE (10:11)
[2020-11-21] MEDS ORDERED: SODIUM CHLORIDE 0.9% 100 ML ONE (10:11)
[2020-11-21] MEDS: ATORVASTATIN CALCIUM 10 MG TABLET PO SCH (20:58)
[2020-11-22 05:20] VITALS: BP 105/63
[2020-11-22 06:57] LABS: EOSINOPHILS % (AUTO) 9.3 % (1.0-6.0); HEMOGLOBIN 12.7 g/dL (12.0-16.0); LYMPHOCYTES # (AUTO) 1.8 K/uL (1.0-4.8); LYMPHOCYTES % (AUTO) 28.8 % (22.0-44.0); MEAN CORPUSCULAR HEMOGLOBIN 29.7 pg (26.0-34.0); MEAN CORPUSCULAR HGB CONC 33.3 G/dL (31.0-37.0); MEAN CORPUSCULAR VOLUME 89 fL (80-100); MONOCYTES # (AUTO) 0.6 K/uL (0.1-1.0); MONOCYTES % (AUTO) 9.4 % (2.0-9.0); NEUTROPHILS % (AUTO) 49.5 % (40.0-70.0); PLATELET COUNT (AUTO) 553 K/uL (150-450); RED BLOOD CELL COUNT(AUTO) 4.27 MIL/uL (4.00-5.20); RED CELL DISTRIBUTION WIDTH 14.7 % (11.5-14.5)
[2020-11-22 07:11] LABS: ANION GAP 6 mmol/L (8-16); CALCIUM, TOTAL 9.2 mg/dL (8.8-10.5); CARBON DIOXIDE 27 mmol/L (22-29); CHLORIDE 103 mmol/L (98-107); CREATININE 0.71 mg/dL (0.60-1.30); GLOMERULAR FILTR. RATE CALC > 60 mL/min (>60); GLUCOSE,RANDOM 92 mg/dL (70-110); POTASSIUM 4.2 mmol/L (3.5-5.1); SODIUM SERUM 136 mmol/L (136-145); UREA NITROGEN, BLOOD 16 mg/dL (7-18); VANCOMYCIN,RANDOM 20.6 mcg/mL (25.0-50.0)
[2020-11-22 07:30] VITALS: BP 96/67
[2020-11-22] MEDS: DOCUSATE SODIUM 100 MG CAPSULE PO SCH ×2 (09:00→20:17)
[2020-11-22] MEDS: ETHYL ALCOHOL 62% ANTISEPTIC NASAL INHALANT 0.6 ML AMPUL NASAL SCH ×2 (09:25→20:18)
[2020-11-22] MEDS: VANCOMYCIN HCL 1.25 GM in DEXTROSE 5%-WATER 250 ML IV SCH ×2 (09:25→19:46)
[2020-11-22] MEDS: APIXABAN 5 MG TABLET PO SCH ×2 (11:27→20:17)
[2020-11-22] MEDS: PANTOPRAZOLE SODIUM 40 MG DR TABLET PO SCH (11:27)
[2020-11-22] MEDS: ASPIRIN 81 MG CHEWABLE TABLET PO SCH (11:28)
[2020-11-22 11:59] VITALS: BP 118/72
[2020-11-22 12:00] VITALS: BP 112/70
[2020-11-22 16:00] VITALS: BP 106/65
[2020-11-22] MEDS ORDERED: SODIUM CHLORIDE 0.9% 250 ML IV ONE (19:38)
[2020-11-22] MEDS: ATORVASTATIN CALCIUM 10 MG TABLET PO SCH (20:17)
[2020-11-22 20:20] VITALS: BP 99/67
[2020-11-23 00:30] VITALS: BP 111/66
[2020-11-23 04:55] VITALS: BP 106/75
[2020-11-23] MEDS: VANCOMYCIN HCL 1.25 GM in DEXTROSE 5%-WATER 250 ML IV SCH ×2 (06:39→20:06)
[2020-11-23 07:01] LABS: ANION GAP 11 mmol/L (8-16); CALCIUM, TOTAL 9.5 mg/dL (8.8-10.5); CARBON DIOXIDE 27 mmol/L (22-29); CHLORIDE 103 mmol/L (98-107); CREATININE 0.58 mg/dL (0.60-1.30); GLOMERULAR FILTR. RATE CALC > 60 mL/min (>60); GLUCOSE,RANDOM 86 mg/dL (70-110); SODIUM SERUM 141 mmol/L (136-145); UREA NITROGEN, BLOOD 15 mg/dL (7-18)
[2020-11-23] MEDS: APIXABAN 5 MG TABLET PO SCH ×2 (08:09→19:21)
[2020-11-23] MEDS: ASPIRIN 81 MG CHEWABLE TABLET PO SCH (08:09)
[2020-11-23] MEDS: ETHYL ALCOHOL 62% ANTISEPTIC NASAL INHALANT 0.6 ML AMPUL NASAL SCH ×2 (08:09→20:07)
[2020-11-23 08:10] VITALS: BP 113/59
[2020-11-23] MEDS: DOCUSATE SODIUM 100 MG CAPSULE PO SCH ×2 (08:10→20:06)
[2020-11-23] MEDS: PANTOPRAZOLE SODIUM 40 MG DR TABLET PO SCH (08:10)
[2020-11-23 11:20] VITALS: BP 94/56
[2020-11-23 15:35] VITALS: BP 111/61
[2020-11-23 19:16] VITALS: BP 93/62
[2020-11-23] MEDS: ATORVASTATIN CALCIUM 10 MG TABLET PO SCH (20:06)
[2020-11-24 00:16] VITALS: BP 96/58
[2020-11-24 04:45] VITALS: BP 104/65
[2020-11-24] MEDS: APIXABAN 5 MG TABLET PO SCH ×2 (07:18→21:00)
[2020-11-24 07:42] VITALS: BP 112/68
[2020-11-24 07:56] LABS: ANION GAP 13 mmol/L (8-16); CALCIUM, TOTAL 9.6 mg/dL (8.8-10.5); CARBON DIOXIDE 26 mmol/L (22-29); CHLORIDE 104 mmol/L (98-107); CREATININE 0.64 mg/dL (0.60-1.30); GLOMERULAR FILTR. RATE CALC > 60 mL/min (>60); GLUCOSE,RANDOM 84 mg/dL (70-110); POTASSIUM 3.9 mmol/L (3.5-5.1); SODIUM SERUM 143 mmol/L (136-145); UREA NITROGEN, BLOOD 17 mg/dL (7-18)
[2020-11-24] MEDS: VANCOMYCIN HCL 1.25 GM in DEXTROSE 5%-WATER 250 ML IV SCH ×2 (08:46→21:22)
[2020-11-24] MEDS: ASPIRIN 81 MG CHEWABLE TABLET PO SCH (09:00)
[2020-11-24] MEDS: DOCUSATE SODIUM 100 MG CAPSULE PO SCH ×2 (09:00→21:22)
[2020-11-24] MEDS: PANTOPRAZOLE SODIUM 40 MG DR TABLET PO SCH ×2 (09:00→11:40)
[2020-11-24] MEDS: ETHYL ALCOHOL 62% ANTISEPTIC NASAL INHALANT 0.6 ML AMPUL NASAL SCH ×2 (09:52→21:22)
[2020-11-24 12:05] VITALS: BP 113/64
[2020-11-24 15:31] VITALS: BP 92/58
[2020-11-24 20:58] VITALS: BP 110/60
[2020-11-24] MEDS: ATORVASTATIN CALCIUM 10 MG TABLET PO SCH (21:22)
[2020-11-25] VITALS (9 sets, daily range): BP systolic 97–149; BP diastolic 58–92
[2020-11-25] MEDS: ETHYL ALCOHOL 62% ANTISEPTIC NASAL INHALANT 0.6 ML AMPUL NASAL SCH ×2 (07:41→20:10)
[2020-11-25] MEDS: VANCOMYCIN HCL 1.25 GM in DEXTROSE 5%-WATER 250 ML IV SCH ×2 (07:43→20:10)
[2020-11-25 07:50] LABS: ANION GAP 6 mmol/L (8-16); CALCIUM, TOTAL 9.5 mg/dL (8.8-10.5); CARBON DIOXIDE 29 mmol/L (22-29); CHLORIDE 103 mmol/L (98-107); CREATININE 0.71 mg/dL (0.60-1.30); GLOMERULAR FILTR. RATE CALC > 60 mL/min (>60); GLUCOSE,RANDOM 89 mg/dL (70-110); POTASSIUM 4.1 mmol/L (3.5-5.1); SODIUM SERUM 138 mmol/L (136-145); UREA NITROGEN, BLOOD 16 mg/dL (7-18)
[2020-11-25] MEDS ORDERED: BENZOCAINE 20% 50 MCG/SPRAY 57 GM ONE (08:29)
[2020-11-25] MEDS: ASPIRIN 81 MG CHEWABLE TABLET PO SCH ×2 (09:00→10:32)
[2020-11-25] MEDS ORDERED: FentaNYL CITRATE PF 100 MCG/2 ML VIAL ONE (09:14)
[2020-11-25] MEDS ORDERED: MIDAZOLAM HCL 2 MG/2 ML VIAL ONE ×2 (09:14→09:23)
[2020-11-25] MEDS ORDERED: BENZOCAINE 20% 50 MCG/SPRAY 57 GM TP ONE (09:30)
[2020-11-25] MEDS ORDERED: FentaNYL CITRATE PF 100 MCG/2 ML VIAL IVP ONE ×2 (09:30)
[2020-11-25] MEDS ORDERED: MIDAZOLAM HCL 2 MG/2 ML VIAL IVP ONE ×2 (09:30)
[2020-11-25] MEDS: APIXABAN 5 MG TABLET PO SCH ×2 (10:24→20:11)
[2020-11-25] MEDS: PANTOPRAZOLE SODIUM 40 MG DR TABLET PO SCH (10:31)
[2020-11-25] MEDS: DOCUSATE SODIUM 100 MG CAPSULE PO SCH ×2 (10:31→20:10)
[2020-11-25] MEDS: ATORVASTATIN CALCIUM 10 MG TABLET PO SCH (20:11)
[2020-11-26] VITALS (7 sets, daily range): BP systolic 91–155; BP diastolic 58–94
[2020-11-26] MEDS: DOCUSATE SODIUM 100 MG CAPSULE PO SCH ×2 (08:48→20:25)
[2020-11-26] MEDS: MULTIVITAMINS WITH MINERALS, THERAPEUTIC TABLET PO SCH (08:48)
[2020-11-26] MEDS: VANCOMYCIN HCL 1.25 GM in DEXTROSE 5%-WATER 250 ML IV SCH ×2 (08:48→20:27)
[2020-11-26] MEDS: APIXABAN 5 MG TABLET PO SCH ×2 (08:48→20:25)
[2020-11-26] MEDS: ETHYL ALCOHOL 62% ANTISEPTIC NASAL INHALANT 0.6 ML AMPUL NASAL SCH ×2 (08:49→20:25)
[2020-11-26] MEDS: ZOLPIDEM TARTRATE 5 MG TABLET PO PRN (20:25)
[2020-11-26] MEDS: ATORVASTATIN CALCIUM 10 MG TABLET PO SCH (20:25)
[2020-11-26] MEDS: HYDROCODONE/ACETAMINOPHEN 5-325 MG TABLET PO PRN (20:26)
[2020-11-27] VITALS (7 sets, daily range): BP systolic 96–117; BP diastolic 58–85
[2020-11-27] MEDS: HYDROCODONE/ACETAMINOPHEN 5-325 MG TABLET PO PRN (05:07)
[2020-11-27] MEDS: VANCOMYCIN HCL 1.25 GM in DEXTROSE 5%-WATER 250 ML IV SCH ×2 (06:51→19:51)
[2020-11-27 07:18] LABS: ANION GAP 8 mmol/L (8-16); CALCIUM, TOTAL 9.1 mg/dL (8.8-10.5); CARBON DIOXIDE 26 mmol/L (22-29); CHLORIDE 103 mmol/L (98-107); CREATININE 0.65 mg/dL (0.60-1.30); GLOMERULAR FILTR. RATE CALC > 60 mL/min (>60); GLUCOSE,RANDOM 89 mg/dL (70-110); POTASSIUM 3.6 mmol/L (3.5-5.1); SODIUM SERUM 137 mmol/L (136-145); UREA NITROGEN, BLOOD 14 mg/dL (7-18)
[2020-11-27] MEDS: ETHYL ALCOHOL 62% ANTISEPTIC NASAL INHALANT 0.6 ML AMPUL NASAL SCH ×2 (08:12→21:02)
[2020-11-27] MEDS: DOCUSATE SODIUM 100 MG CAPSULE PO SCH ×2 (08:12→21:02)
[2020-11-27] MEDS: APIXABAN 5 MG TABLET PO SCH ×2 (08:13→21:02)
[2020-11-27] MEDS: MULTIVITAMINS WITH MINERALS, THERAPEUTIC TABLET PO SCH (08:13)
[2020-11-27] MEDS: PANTOPRAZOLE SODIUM 40 MG DR TABLET PO SCH (08:13)
[2020-11-27] MEDS: ASPIRIN 81 MG CHEWABLE TABLET PO SCH (08:17)
[2020-11-27] MEDS: ATORVASTATIN CALCIUM 10 MG TABLET PO SCH (21:02)
[2020-11-28 06:00] VITALS: BP 129/79
[2020-11-28 07:15] LABS: ANION GAP 5 mmol/L (8-16); CALCIUM, TOTAL 9.7 mg/dL (8.8-10.5); CARBON DIOXIDE 29 mmol/L (22-29); CHLORIDE 104 mmol/L (98-107); CREATININE 0.65 mg/dL (0.60-1.30); GLOMERULAR FILTR. RATE CALC > 60 mL/min (>60); GLUCOSE,RANDOM 85 mg/dL (70-110); POTASSIUM 4.1 mmol/L (3.5-5.1); SODIUM SERUM 138 mmol/L (136-145); UREA NITROGEN, BLOOD 15 mg/dL (7-18); VANCOMYCIN,RANDOM 25.8 mcg/mL (25.0-50.0)
[2020-11-28] MEDS: VANCOMYCIN HCL 1.25 GM in DEXTROSE 5%-WATER 250 ML IV SCH ×2 (07:46→20:10)
[2020-11-28] MEDS: DOCUSATE SODIUM 100 MG CAPSULE PO SCH ×2 (08:15→20:10)
[2020-11-28] MEDS: ETHYL ALCOHOL 62% ANTISEPTIC NASAL INHALANT 0.6 ML AMPUL NASAL SCH ×2 (08:15→20:10)
[2020-11-28] MEDS: APIXABAN 5 MG TABLET PO SCH ×2 (08:15→21:50)
[2020-11-28] MEDS: ASPIRIN 81 MG CHEWABLE TABLET PO SCH (08:15)
[2020-11-28] MEDS: PANTOPRAZOLE SODIUM 40 MG DR TABLET PO SCH (08:16)
[2020-11-28] MEDS: MULTIVITAMINS WITH MINERALS, THERAPEUTIC TABLET PO SCH (08:16)
[2020-11-28 08:33] VITALS: BP 111/70
[2020-11-28 12:00] VITALS: BP 101/57
[2020-11-28 16:11] VITALS: BP 117/65
[2020-11-28] MEDS: ATORVASTATIN CALCIUM 10 MG TABLET PO SCH (20:10)
[2020-11-28 20:57] VITALS: BP 101/58
[2020-11-28] MEDS ORDERED: SODIUM CHLORIDE 0.9% 500 ML IV ONE (22:38)
[2020-11-29 04:21] VITALS: BP 111/65
[2020-11-29 06:36] LABS: BASOPHILS % (AUTO) 3.1 % (0.0-2.0); EOSINOPHILS % (AUTO) 8.1 % (1.0-6.0); HEMATOCRIT 39.1 % (36-46); HEMOGLOBIN 12.7 g/dL (12.0-16.0); LYMPHOCYTES # (AUTO) 2.3 K/uL (1.0-4.8); LYMPHOCYTES % (AUTO) 32.3 % (22.0-44.0); MEAN CORPUSCULAR HEMOGLOBIN 29.1 pg (26.0-34.0); MEAN CORPUSCULAR HGB CONC 32.5 G/dL (31.0-37.0); MEAN CORPUSCULAR VOLUME 90 fL (80-100); MONOCYTES # (AUTO) 0.6 K/uL (0.1-1.0); MONOCYTES % (AUTO) 8.6 % (2.0-9.0); NEUTROPHILS # (AUTO) 3.4 K/uL (1.8-7.7); NEUTROPHILS % (AUTO) 47.9 % (40.0-70.0); PLATELET COUNT (AUTO) 505 K/uL (150-450); RED BLOOD CELL COUNT(AUTO) 4.36 MIL/uL (4.00-5.20); RED CELL DISTRIBUTION WIDTH 14.8 % (11.5-14.5)
[2020-11-29] MEDS ORDERED: SODIUM CHLORIDE 0.9% 500 ML IV ONE (07:19)
[2020-11-29] MEDS: VANCOMYCIN HCL 1.25 GM in DEXTROSE 5%-WATER 250 ML IV SCH ×2 (07:23→19:58)
[2020-11-29 08:00] VITALS: BP 121/75
[2020-11-29] MEDS: ASPIRIN 81 MG CHEWABLE TABLET PO SCH (08:27)
[2020-11-29] MEDS: APIXABAN 5 MG TABLET PO SCH ×2 (08:27→19:58)
[2020-11-29] MEDS: ETHYL ALCOHOL 62% ANTISEPTIC NASAL INHALANT 0.6 ML AMPUL NASAL SCH ×2 (08:27→19:59)
[2020-11-29] MEDS: PANTOPRAZOLE SODIUM 40 MG DR TABLET PO SCH (08:27)
[2020-11-29] MEDS: DOCUSATE SODIUM 100 MG CAPSULE PO SCH ×2 (08:28→19:58)
[2020-11-29] MEDS: MULTIVITAMINS WITH MINERALS, THERAPEUTIC TABLET PO SCH (08:28)
[2020-11-29 16:43] VITALS: BP 111/70
[2020-11-29 19:55] VITALS: BP 111/68
[2020-11-29] MEDS: ATORVASTATIN CALCIUM 10 MG TABLET PO SCH (19:58)
[2020-11-29] MEDS: ACETAMINOPHEN 325 MG TABLET PO PRN (20:34)
[2020-11-30 05:28] VITALS: BP 104/67
[2020-11-30 06:59] LABS: ANION GAP 11 mmol/L (8-16); CALCIUM, TOTAL 9.3 mg/dL (8.8-10.5); CARBON DIOXIDE 26 mmol/L (22-29); CHLORIDE 105 mmol/L (98-107); CREATININE 0.71 mg/dL (0.60-1.30); GLOMERULAR FILTR. RATE CALC > 60 mL/min (>60); GLUCOSE,RANDOM 91 mg/dL (70-110); SODIUM SERUM 142 mmol/L (136-145); UREA NITROGEN, BLOOD 17 mg/dL (7-18)
[2020-11-30 07:42] VITALS: BP 111/70
[2020-11-30] MEDS: MULTIVITAMINS WITH MINERALS, THERAPEUTIC TABLET PO SCH (08:08)
[2020-11-30] MEDS: PANTOPRAZOLE SODIUM 40 MG DR TABLET PO SCH (08:08)
[2020-11-30] MEDS: DOCUSATE SODIUM 100 MG CAPSULE PO SCH ×2 (08:08→20:27)
[2020-11-30] MEDS: APIXABAN 5 MG TABLET PO SCH ×2 (08:08→20:26)
[2020-11-30] MEDS: ETHYL ALCOHOL 62% ANTISEPTIC NASAL INHALANT 0.6 ML AMPUL NASAL SCH ×2 (08:08→20:26)
[2020-11-30] MEDS: VANCOMYCIN HCL 1.25 GM in DEXTROSE 5%-WATER 250 ML IV SCH ×2 (08:08→20:26)
[2020-11-30] MEDS: ASPIRIN 81 MG CHEWABLE TABLET PO SCH (08:08)
[2020-11-30 12:36] LABS: GLUCOMETER DEV NAME(LOC) 6S.1; GLUCOSE,POINT OF CARE 171 MG/DL (70-110)
[2020-11-30 13:05] VITALS: BP 123/74
[2020-11-30 16:03] VITALS: BP 104/70
[2020-11-30 19:56] VITALS: BP 94/54
[2020-11-30] MEDS: ATORVASTATIN CALCIUM 10 MG TABLET PO SCH (20:26)
[2020-12-01 04:52] VITALS: BP 104/68
[2020-12-01 08:03] VITALS: BP 101/69
[2020-12-01] MEDS: ASPIRIN 81 MG CHEWABLE TABLET PO SCH (08:37)
[2020-12-01] MEDS: ETHYL ALCOHOL 62% ANTISEPTIC NASAL INHALANT 0.6 ML AMPUL NASAL SCH ×2 (08:37→20:26)
[2020-12-01] MEDS: MULTIVITAMINS WITH MINERALS, THERAPEUTIC TABLET PO SCH (08:38)
[2020-12-01] MEDS: PANTOPRAZOLE SODIUM 40 MG DR TABLET PO SCH (08:38)
[2020-12-01] MEDS: VANCOMYCIN HCL 1.25 GM in DEXTROSE 5%-WATER 250 ML IV SCH ×2 (08:38→20:26)
[2020-12-01] MEDS: APIXABAN 5 MG TABLET PO SCH ×2 (08:38→20:25)
[2020-12-01] MEDS: DOCUSATE SODIUM 100 MG CAPSULE PO SCH ×2 (08:38→20:26)
[2020-12-01 15:17] VITALS: BP 107/70
[2020-12-01 19:50] VITALS: BP 97/54
[2020-12-01] MEDS: ATORVASTATIN CALCIUM 10 MG TABLET PO SCH (20:25)
[2020-12-02 04:46] VITALS: BP 111/63
[2020-12-02 06:45] LABS: BASOPHILS % (AUTO) 2.3 % (0.0-2.0); HEMATOCRIT 33.8 % (36-46); HEMOGLOBIN 11.5 g/dL (12.0-16.0); LYMPHOCYTES # (AUTO) 2.4 K/uL (1.0-4.8); LYMPHOCYTES % (AUTO) 37.6 % (22.0-44.0); MEAN CORPUSCULAR HEMOGLOBIN 30.2 pg (26.0-34.0); MEAN CORPUSCULAR HGB CONC 33.9 G/dL (31.0-37.0); MEAN CORPUSCULAR VOLUME 89 fL (80-100); MONOCYTES # (AUTO) 0.5 K/uL (0.1-1.0); MONOCYTES % (AUTO) 8.3 % (2.0-9.0); NEUTROPHILS # (AUTO) 2.8 K/uL (1.8-7.7); NEUTROPHILS % (AUTO) 43.8 % (40.0-70.0); PLATELET COUNT (AUTO) 496 K/uL (150-450); RED CELL DISTRIBUTION WIDTH 14.6 % (11.5-14.5)
[2020-12-02 07:34] VITALS: BP 109/63
[2020-12-02 07:54] LABS: ANION GAP 8 mmol/L (8-16); CALCIUM, TOTAL 9.2 mg/dL (8.8-10.5); CARBON DIOXIDE 26 mmol/L (22-29); CHLORIDE 105 mmol/L (98-107); CREATININE 0.68 mg/dL (0.60-1.30); GLOMERULAR FILTR. RATE CALC > 60 mL/min (>60); GLUCOSE,RANDOM 88 mg/dL (70-110); POTASSIUM 3.8 mmol/L (3.5-5.1); SODIUM SERUM 139 mmol/L (136-145); UREA NITROGEN, BLOOD 15 mg/dL (7-18); VANCOMYCIN,RANDOM 21.8 mcg/mL (25.0-50.0)
[2020-12-02] MEDS: VANCOMYCIN HCL 1.25 GM in DEXTROSE 5%-WATER 250 ML IV SCH ×2 (08:34→20:42)
[2020-12-02] MEDS: ASPIRIN 81 MG CHEWABLE TABLET PO SCH (08:44)
[2020-12-02] MEDS: DOCUSATE SODIUM 100 MG CAPSULE PO SCH ×2 (08:44→20:42)
[2020-12-02] MEDS: MULTIVITAMINS WITH MINERALS, THERAPEUTIC TABLET PO SCH (08:44)
[2020-12-02] MEDS: ETHYL ALCOHOL 62% ANTISEPTIC NASAL INHALANT 0.6 ML AMPUL NASAL SCH ×2 (08:45→20:42)
[2020-12-02] MEDS: PANTOPRAZOLE SODIUM 40 MG DR TABLET PO SCH (08:45)
[2020-12-02] MEDS: APIXABAN 5 MG TABLET PO SCH ×2 (09:56→20:42)
[2020-12-02 11:30] VITALS: BP 99/68
[2020-12-02 15:18] VITALS: BP 105/64
[2020-12-02 19:45] VITALS: BP 104/61
[2020-12-02] MEDS: ATORVASTATIN CALCIUM 10 MG TABLET PO SCH (20:42)
[2020-12-03 04:46] VITALS: BP 101/64
[2020-12-03 08:03] VITALS: BP 108/69
[2020-12-03] MEDS: ETHYL ALCOHOL 62% ANTISEPTIC NASAL INHALANT 0.6 ML AMPUL NASAL SCH ×2 (09:01→19:58)
[2020-12-03] MEDS: PANTOPRAZOLE SODIUM 40 MG DR TABLET PO SCH (09:01)
[2020-12-03] MEDS: MULTIVITAMINS WITH MINERALS, THERAPEUTIC TABLET PO SCH (09:01)
[2020-12-03] MEDS: APIXABAN 5 MG TABLET PO SCH ×2 (09:01→19:59)
[2020-12-03] MEDS: DOCUSATE SODIUM 100 MG CAPSULE PO SCH ×2 (09:01→19:59)
[2020-12-03] MEDS: ASPIRIN 81 MG CHEWABLE TABLET PO SCH (09:01)
[2020-12-03] MEDS: VANCOMYCIN HCL 1.25 GM in DEXTROSE 5%-WATER 250 ML IV SCH ×2 (09:02→19:58)
[2020-12-03 11:59] VITALS: BP 107/72
[2020-12-03 12:16] VITALS: BP 102/73
[2020-12-03 16:01] VITALS: BP_SYST 103; BP_SYST 108; BP_DIAS 68; BP_DIAS 69
[2020-12-03] MEDS: ATORVASTATIN CALCIUM 10 MG TABLET PO SCH (19:59)
[2020-12-03 20:45] VITALS: BP 98/62
[2020-12-04 04:00] VITALS: BP 106/67
[2020-12-04 07:26] LABS: BASOPHILS % (AUTO) 1.6 % (0.0-2.0); EOSINOPHILS % (AUTO) 7.4 % (1.0-6.0); HEMATOCRIT 35.4 % (36-46); HEMOGLOBIN 11.8 g/dL (12.0-16.0); LYMPHOCYTES # (AUTO) 2.6 K/uL (1.0-4.8); MEAN CORPUSCULAR HEMOGLOBIN 29.6 pg (26.0-34.0); MEAN CORPUSCULAR HGB CONC 33.2 G/dL (31.0-37.0); MEAN CORPUSCULAR VOLUME 89 fL (80-100); MONOCYTES # (AUTO) 0.5 K/uL (0.1-1.0); MONOCYTES % (AUTO) 8.1 % (2.0-9.0); NEUTROPHILS # (AUTO) 2.5 K/uL (1.8-7.7); NEUTROPHILS % (AUTO) 40.9 % (40.0-70.0); PLATELET COUNT (AUTO) 467 K/uL (150-450); RED BLOOD CELL COUNT(AUTO) 3.97 MIL/uL (4.00-5.20); RED CELL DISTRIBUTION WIDTH 14.5 % (11.5-14.5)
[2020-12-04 08:05] VITALS: BP 106/62
[2020-12-04] MEDS: ETHYL ALCOHOL 62% ANTISEPTIC NASAL INHALANT 0.6 ML AMPUL NASAL SCH ×2 (08:05→20:33)
[2020-12-04] MEDS: VANCOMYCIN HCL 1.25 GM in DEXTROSE 5%-WATER 250 ML IV SCH ×2 (08:05→20:39)
[2020-12-04] MEDS: ASPIRIN 81 MG CHEWABLE TABLET PO SCH (08:06)
[2020-12-04] MEDS: PANTOPRAZOLE SODIUM 40 MG DR TABLET PO SCH (08:06)
[2020-12-04] MEDS: DOCUSATE SODIUM 100 MG CAPSULE PO SCH ×2 (08:06→20:33)
[2020-12-04] MEDS: APIXABAN 5 MG TABLET PO SCH ×2 (08:06→20:33)
[2020-12-04] MEDS: MULTIVITAMINS WITH MINERALS, THERAPEUTIC TABLET PO SCH (08:06)
[2020-12-04 11:03] LABS: ALANINE AMINOTRANSFERASE 31 U/L (12-78); ALBUMIN 3.1 g/dL (3.4-5.0); ALKALINE PHOSPHATASE 113 U/L (46-116); ANION GAP 3 mmol/L (8-16); ASPARTATE AMINOTRANSFERASE 20 U/L (15-37); BILIRUBIN,TOTAL 0.5 mg/dL (0.1-1.0); CALCIUM, TOTAL 8.8 mg/dL (8.8-10.5); CARBON DIOXIDE 28 mmol/L (22-29); CHLORIDE 105 mmol/L (98-107); CREATININE 0.64 mg/dL (0.60-1.30); GLOMERULAR FILTR. RATE CALC > 60 mL/min (>60); GLUCOSE,RANDOM 113 mg/dL (70-110); POTASSIUM 3.5 mmol/L (3.5-5.1); SODIUM SERUM 136 mmol/L (136-145); TOTAL PROTEIN, SERUM 7.2 g/dL (6.4-8.2); UREA NITROGEN, BLOOD 14 mg/dL (7-18)
[2020-12-04 15:15] VITALS: BP 106/67
[2020-12-04 20:18] VITALS: BP 102/59
[2020-12-04] MEDS: ATORVASTATIN CALCIUM 10 MG TABLET PO SCH (20:33)
[2020-12-04 23:54] VITALS: BP 98/65
[2020-12-05 04:13] VITALS: BP 99/68
[2020-12-05 08:04] VITALS: BP 111/72
[2020-12-05] MEDS: ASPIRIN 81 MG CHEWABLE TABLET PO SCH (08:52)
[2020-12-05] MEDS: PANTOPRAZOLE SODIUM 40 MG DR TABLET PO SCH (08:53)
[2020-12-05] MEDS: MULTIVITAMINS WITH MINERALS, THERAPEUTIC TABLET PO SCH (08:53)
[2020-12-05] MEDS: VANCOMYCIN HCL 1.25 GM in DEXTROSE 5%-WATER 250 ML IV SCH ×2 (08:53→20:05)
[2020-12-05] MEDS: APIXABAN 5 MG TABLET PO SCH ×2 (08:53→20:06)
[2020-12-05] MEDS: ETHYL ALCOHOL 62% ANTISEPTIC NASAL INHALANT 0.6 ML AMPUL NASAL SCH ×2 (08:54→20:05)
[2020-12-05] MEDS: DOCUSATE SODIUM 100 MG CAPSULE PO SCH ×2 (08:55→20:05)
[2020-12-05 15:34] VITALS: BP 122/79
[2020-12-05] MEDS ORDERED: SODIUM CHLORIDE 0.9% 500 ML IV ONE (16:22)
[2020-12-05 19:41] VITALS: BP 99/66
[2020-12-05] MEDS: ATORVASTATIN CALCIUM 10 MG TABLET PO SCH (20:06)
[2020-12-06 04:41] VITALS: BP 103/65
[2020-12-06 07:33] LABS: ANION GAP 9 mmol/L (8-16); CALCIUM, TOTAL 8.9 mg/dL (8.8-10.5); CARBON DIOXIDE 27 mmol/L (22-29); CHLORIDE 105 mmol/L (98-107); GLOMERULAR FILTR. RATE CALC > 60 mL/min (>60); GLUCOSE,RANDOM 90 mg/dL (70-110); POTASSIUM 3.7 mmol/L (3.5-5.1); SODIUM SERUM 141 mmol/L (136-145); UREA NITROGEN, BLOOD 14 mg/dL (7-18); VANCOMYCIN,RANDOM 22.6 mcg/mL (25.0-50.0)
[2020-12-06 08:00] VITALS: BP 114/74
[2020-12-06] MEDS: ETHYL ALCOHOL 62% ANTISEPTIC NASAL INHALANT 0.6 ML AMPUL NASAL SCH ×2 (08:14→20:34)
[2020-12-06] MEDS: DOCUSATE SODIUM 100 MG CAPSULE PO SCH ×2 (08:14→20:34)
[2020-12-06] MEDS: VANCOMYCIN HCL 1.25 GM in DEXTROSE 5%-WATER 250 ML IV SCH ×2 (08:14→20:34)
[2020-12-06] MEDS: PANTOPRAZOLE SODIUM 40 MG DR TABLET PO SCH (08:15)
[2020-12-06] MEDS: APIXABAN 5 MG TABLET PO SCH ×2 (08:15→20:34)
[2020-12-06] MEDS: MULTIVITAMINS WITH MINERALS, THERAPEUTIC TABLET PO SCH (08:15)
[2020-12-06] MEDS: ASPIRIN 81 MG CHEWABLE TABLET PO SCH (08:15)
[2020-12-06 15:53] VITALS: BP 106/70
[2020-12-06 19:36] VITALS: BP 102/58
[2020-12-06] MEDS: ATORVASTATIN CALCIUM 10 MG TABLET PO SCH (20:34)
[2020-12-07 03:53] VITALS: BP 108/65
[2020-12-07 07:58] VITALS: BP 115/66
[2020-12-07] MEDS: DOCUSATE SODIUM 100 MG CAPSULE PO SCH ×2 (08:56→20:17)
[2020-12-07] MEDS: PANTOPRAZOLE SODIUM 40 MG DR TABLET PO SCH (08:56)
[2020-12-07] MEDS: MULTIVITAMINS WITH MINERALS, THERAPEUTIC TABLET PO SCH (08:57)
[2020-12-07] MEDS: ASPIRIN 81 MG CHEWABLE TABLET PO SCH (08:57)
[2020-12-07] MEDS: VANCOMYCIN HCL 1.25 GM in DEXTROSE 5%-WATER 250 ML IV SCH ×2 (08:57→20:18)
[2020-12-07] MEDS: ETHYL ALCOHOL 62% ANTISEPTIC NASAL INHALANT 0.6 ML AMPUL NASAL SCH ×2 (09:03→20:18)
[2020-12-07] MEDS: APIXABAN 5 MG TABLET PO SCH ×2 (09:05→20:18)
[2020-12-07 15:50] VITALS: BP 112/82
[2020-12-07 19:56] VITALS: BP 99/49
[2020-12-07] MEDS: ATORVASTATIN CALCIUM 10 MG TABLET PO SCH (20:18)
[2020-12-07 20:20] VITALS: BP 89/60
[2020-12-08 05:40] VITALS: BP 106/57
[2020-12-08 08:08] VITALS: BP 113/70
[2020-12-08] MEDS: DOCUSATE SODIUM 100 MG CAPSULE PO SCH ×2 (08:35→20:46)
[2020-12-08] MEDS: ETHYL ALCOHOL 62% ANTISEPTIC NASAL INHALANT 0.6 ML AMPUL NASAL SCH ×2 (08:35→20:46)
[2020-12-08] MEDS: PANTOPRAZOLE SODIUM 40 MG DR TABLET PO SCH (08:35)
[2020-12-08] MEDS: MULTIVITAMINS WITH MINERALS, THERAPEUTIC TABLET PO SCH (08:35)
[2020-12-08] MEDS: ASPIRIN 81 MG CHEWABLE TABLET PO SCH (08:35)
[2020-12-08] MEDS: VANCOMYCIN HCL 1.25 GM in DEXTROSE 5%-WATER 250 ML IV SCH ×2 (08:35→20:45)
[2020-12-08] MEDS: APIXABAN 5 MG TABLET PO SCH ×2 (08:35→20:46)
[2020-12-08 15:50] VITALS: BP 106/74
[2020-12-08 19:40] VITALS: BP 111/71
[2020-12-08] MEDS: ATORVASTATIN CALCIUM 10 MG TABLET PO SCH (20:46)
[2020-12-09 04:46] VITALS: BP 107/67
[2020-12-09 07:12] LABS: ANION GAP 7 mmol/L (8-16); CALCIUM, TOTAL 9.2 mg/dL (8.8-10.5); CARBON DIOXIDE 29 mmol/L (22-29); CHLORIDE 103 mmol/L (98-107); CREATININE 0.68 mg/dL (0.60-1.30); GLOMERULAR FILTR. RATE CALC > 60 mL/min (>60); GLUCOSE,RANDOM 85 mg/dL (70-110); POTASSIUM 3.7 mmol/L (3.5-5.1); SODIUM SERUM 139 mmol/L (136-145); UREA NITROGEN, BLOOD 14 mg/dL (7-18)
[2020-12-09 07:43] VITALS: BP 111/77
[2020-12-09] MEDS: ASPIRIN 81 MG CHEWABLE TABLET PO SCH (08:45)
[2020-12-09] MEDS: APIXABAN 5 MG TABLET PO SCH ×2 (08:45→20:34)
[2020-12-09] MEDS: DOCUSATE SODIUM 100 MG CAPSULE PO SCH ×2 (08:45→20:34)
[2020-12-09] MEDS: PANTOPRAZOLE SODIUM 40 MG DR TABLET PO SCH (08:45)
[2020-12-09] MEDS: MULTIVITAMINS WITH MINERALS, THERAPEUTIC TABLET PO SCH (08:45)
[2020-12-09] MEDS: VANCOMYCIN HCL 1.25 GM in DEXTROSE 5%-WATER 250 ML IV SCH ×2 (08:45→20:32)
[2020-12-09] MEDS: ETHYL ALCOHOL 62% ANTISEPTIC NASAL INHALANT 0.6 ML AMPUL NASAL SCH ×2 (08:45→20:33)
[2020-12-09 11:30] VITALS: BP 118/74
[2020-12-09 15:17] VITALS: BP 104/68
[2020-12-09 19:51] VITALS: BP 92/57
[2020-12-09] MEDS: ATORVASTATIN CALCIUM 10 MG TABLET PO SCH (20:34)
[2020-12-10 05:25] VITALS: BP 98/59
[2020-12-10 08:00] VITALS: BP 118/69
[2020-12-10] MEDS: APIXABAN 5 MG TABLET PO SCH ×2 (08:02→20:04)
[2020-12-10] MEDS: ETHYL ALCOHOL 62% ANTISEPTIC NASAL INHALANT 0.6 ML AMPUL NASAL SCH ×2 (08:02→20:05)
[2020-12-10] MEDS: PANTOPRAZOLE SODIUM 40 MG DR TABLET PO SCH (08:03)
[2020-12-10] MEDS: MULTIVITAMINS WITH MINERALS, THERAPEUTIC TABLET PO SCH (08:06)
[2020-12-10] MEDS: ASPIRIN 81 MG CHEWABLE TABLET PO SCH (08:06)
[2020-12-10] MEDS: DOCUSATE SODIUM 100 MG CAPSULE PO SCH ×2 (08:06→20:04)
[2020-12-10] MEDS: VANCOMYCIN HCL 1.25 GM in DEXTROSE 5%-WATER 250 ML IV SCH ×2 (08:07→19:50)
[2020-12-10 16:00] VITALS: BP 98/56
[2020-12-10] MEDS ORDERED: SODIUM CHLORIDE 0.9% 500 ML IV ONE (19:53)
[2020-12-10] MEDS: ATORVASTATIN CALCIUM 10 MG TABLET PO SCH (20:04)
[2020-12-10 20:13] VITALS: BP 94/55
[2020-12-11 04:34] VITALS: BP 98/73
[2020-12-11 08:08] VITALS: BP 100/73
[2020-12-11] MEDS: VANCOMYCIN HCL 1.25 GM in DEXTROSE 5%-WATER 250 ML IV SCH ×2 (08:49→19:45)
[2020-12-11] MEDS: APIXABAN 5 MG TABLET PO SCH ×2 (08:50→19:52)
[2020-12-11] MEDS: PANTOPRAZOLE SODIUM 40 MG DR TABLET PO SCH (08:52)
[2020-12-11] MEDS: ASPIRIN 81 MG CHEWABLE TABLET PO SCH (08:53)
[2020-12-11] MEDS: DOCUSATE SODIUM 100 MG CAPSULE PO SCH ×2 (08:53→19:52)
[2020-12-11] MEDS: ETHYL ALCOHOL 62% ANTISEPTIC NASAL INHALANT 0.6 ML AMPUL NASAL SCH ×2 (08:55→19:52)
[2020-12-11] MEDS: MULTIVITAMINS WITH MINERALS, THERAPEUTIC TABLET PO SCH (08:57)
[2020-12-11 15:20] VITALS: BP 109/71
[2020-12-11 19:37] VITALS: BP 114/63
[2020-12-11] MEDS: ATORVASTATIN CALCIUM 10 MG TABLET PO SCH (19:52)
[2020-12-12 04:25] VITALS: BP 106/68
[2020-12-12 06:50] LABS: ANION GAP 5 mmol/L (8-16); CALCIUM, TOTAL 9.3 mg/dL (8.8-10.5); CARBON DIOXIDE 28 mmol/L (22-29); CHLORIDE 107 mmol/L (98-107); CREATININE 0.73 mg/dL (0.60-1.30); GLOMERULAR FILTR. RATE CALC > 60 mL/min (>60); GLUCOSE,RANDOM 93 mg/dL (70-110); POTASSIUM 3.8 mmol/L (3.5-5.1); SODIUM SERUM 140 mmol/L (136-145); UREA NITROGEN, BLOOD 16 mg/dL (7-18)
[2020-12-12 08:07] VITALS: BP 114/76
[2020-12-12] MEDS: PANTOPRAZOLE SODIUM 40 MG DR TABLET PO SCH (08:18)
[2020-12-12] MEDS: DOCUSATE SODIUM 100 MG CAPSULE PO SCH ×2 (08:18→20:22)
[2020-12-12] MEDS: MULTIVITAMINS WITH MINERALS, THERAPEUTIC TABLET PO SCH (08:18)
[2020-12-12] MEDS: APIXABAN 5 MG TABLET PO SCH ×2 (08:19→20:22)
[2020-12-12] MEDS: VANCOMYCIN HCL 1.25 GM in DEXTROSE 5%-WATER 250 ML IV SCH ×2 (08:19→20:23)
[2020-12-12] MEDS: ASPIRIN 81 MG CHEWABLE TABLET PO SCH (08:19)
[2020-12-12] MEDS: ETHYL ALCOHOL 62% ANTISEPTIC NASAL INHALANT 0.6 ML AMPUL NASAL SCH ×2 (08:23→21:26)
[2020-12-12 15:18] VITALS: BP 113/77
[2020-12-12] MEDS: ATORVASTATIN CALCIUM 10 MG TABLET PO SCH (20:22)
[2020-12-12 20:29] VITALS: BP 101/68
[2020-12-13 05:45] VITALS: BP 111/71
[2020-12-13 07:59] VITALS: BP 114/68
[2020-12-13] MEDS: DOCUSATE SODIUM 100 MG CAPSULE PO SCH (08:41)
[2020-12-13] MEDS: APIXABAN 5 MG TABLET PO SCH (08:41)
[2020-12-13] MEDS: ASPIRIN 81 MG CHEWABLE TABLET PO SCH (08:41)
[2020-12-13] MEDS: PANTOPRAZOLE SODIUM 40 MG DR TABLET PO SCH (08:41)
[2020-12-13] MEDS: MULTIVITAMINS WITH MINERALS, THERAPEUTIC TABLET PO SCH (08:41)
[2020-12-13] MEDS: ETHYL ALCOHOL 62% ANTISEPTIC NASAL INHALANT 0.6 ML AMPUL NASAL SCH (08:41)
[2020-12-13] MEDS: ACETAMINOPHEN 325 MG TABLET PO PRN (08:43)
[2020-12-13] MEDS ORDERED: APIX5TAB PO (13:39)
[2020-12-13] MEDS ORDERED: ATOR10TA84 PO (13:40)
[2020-12-13] MEDS ORDERED: ASPI-1450 PO (13:40)
[2020-12-13] MEDS ORDERED: MULT-248 PO (13:42)
== END 2020-12-13 14:45 | disposition home or self-care (01) | DRG 720 ==
LOC: EMS 09:54 → EDBD 09:54 → ICU 13:34 → 5N 10-28 17:40 → 5S 10-29 18:06 → 6S 11-28 16:00
PROVIDERS: ADMIT Internal Medicine; ATTEND Internal Medicine
PROC: 04HY32Z Insertion of Monitoring Device into Lower Artery, Percutaneous Approach (ICD-10-PCS; principal; 2020-10-23)
PROC: 05HB33Z Insertion of Infusion Device into Right Basilic Vein, Percutaneous Approach (ICD-10-PCS; 2020-10-28)
PROC: 0K9P30Z Drainage of Left Hip Muscle with Drainage Device, Percutaneous Approach (ICD-10-PCS; 2020-11-02)
PROC: 0Y9D30Z Drainage of Left Upper Leg with Drainage Device, Percutaneous Approach (ICD-10-PCS; 2020-11-09)
PROC: 0YPBX0Z Removal of Drainage Device from Left Lower Extremity, External Approach (ICD-10-PCS; 2020-11-22)
PROC: B24BZZ4 Ultrasonography of Heart with Aorta, Transesophageal (ICD-10-PCS; 2020-11-25)
DX: A41.02 Sepsis due to Methicillin resistant Staphylococcus aureus (principal); I26.99 Other pulmonary embolism without acute cor pulmonale; I63.531 Cerebral infarction due to unspecified occlusion or stenosis of right posterior cerebral artery; R65.21 Severe sepsis with septic shock; I76 Septic arterial embolism; K68.12 Psoas muscle abscess; M32.9 Systemic lupus erythematosus, unspecified; G93.41 Metabolic encephalopathy; E87.2 Acidosis; E87.1 Hypo-osmolality and hyponatremia; E86.9 Volume depletion, unspecified; E87.6 Hypokalemia; G81.94 Hemiplegia, unspecified affecting left nondominant side; I65.21 Occlusion and stenosis of right carotid artery; Z20.822 Contact with and (suspected) exposure to COVID-19; I27.20 Pulmonary hypertension, unspecified; K68.19 Other retroperitoneal abscess; L02.31 Cutaneous abscess of buttock; S90.822A Blister (nonthermal), left foot, initial encounter; R29.810 Facial weakness; L02.416 Cutaneous abscess of left lower limb; X58.XXXA Exposure to other specified factors, initial encounter; I36.1 Nonrheumatic tricuspid (valve) insufficiency; N39.0 Urinary tract infection, site not specified; S90.821A Blister (nonthermal), right foot, initial encounter; Z59.0 Homelessness; Z86.73 Personal history of transient ischemic attack (TIA), and cerebral infarction without residual deficits; Q21.1 Atrial septal defect; Y93.89 Activity, other specified; Y92.89 Other specified places as the place of occurrence of the external cause; Y99.8 Other external cause status
CPT/HCPCS: 36245; 36569; 70496; 70551; 71045; 71260; 71275; 72158; 72193; 73701; 74160; 74177; 75989; 76000; 76705; 76937; 80048; 80053; 80061; 80074; 80202; 81001; 81002; 82550; 82962; 83605; 83735; 84100; 84132; 84484; 85025; 85610; 85613; 85651; 85730; 85732; 86140; 86160; 86255; 86430; 86635; 86850; 86900; 86901; 87015; 87040; 87070; 87077; 87081; 87086; 87186; 87205; 87206; 87389; 93005; 93306; 93312; 93970; 94640; 94799; 97110; 97112; 97162; 97530; 97535; 99242; 99244; 99291; G0378; G0480; G0481; J0456; J1644; J2250; J2270; J2310; J2370; J2405; J2543; J3010; J3370; J3475; J3480; J3490; J7030; J7040; J7050; J7060; J7120; P9046; Q9967; 36415-L1; 36415-TC; 70450; 70450-TC; U0003